=== PATIENT | female | born 1935 | race Caucasian/White ===

== ENCOUNTER 2018-12-20 08:53 | Inpatient (IN) ==
[2018-12-20 09:37] LABS: BASO# 0.06 X1000 (0.0-0.2); BASO% 0.2 % (0.0-0.8); EOS# 0.07 X1000 (0.0-0.7); EOS% 0.2 % (0.0-10.0); HEMATOCRIT 36.4 % (37.0-47.0); HEMOGLOBIN 12.1 g/dL (12.0-16.0); IMM GRAN# 0.11 X1000 (0.0-0.04); IMM GRAN% 0.3 % (0.0-0.5); LYMPH% 81.6 % (20.5-51.1); MCH 30.2 PG (27-31); MCHC 33.2 g/dL (33-37); MCV 90.8 FL (81-99); MONO# 1.47 X1000 (0.11-0.59); MONO% 3.7 % (1.7-9.3); MPV 9.6 FL (7.4-10.4); NEUT# 5.64 X1000 (1.4-6.5); PLT 146 X1000 (130-400); RBC 4.01 XMIL (4.2-5.4); RDW 14.5 % (11.5-14.5); WBC 39.95 X1000 (4.8-10.8)
[2018-12-20 09:49] LABS: CALCIUM 9.1 mg/dL (8.8-10.2); POTASSIUM 4.1 mmol/L (3.5-5.1); TOTAL BILIRUBIN 0.4 mg/dL (0.20-1.00); TOTAL PROTEIN 5.9 g/dL (6.3-8.3)
--- NOTE | 2018-12-20 10:00 | Diag Imaging Result Doc PS360 ---
EXAM : CT HEAD/C-SPINE W/O CONTRAST HISTORY: fall TECHNIQUE: 1. CT head without contrast 2. CT cervical spine without contrast COMPARISON: None. FINDINGS: Head: No parenchymal hemorrhage. No epidural or subdural hematoma. No subarachnoid hemorrhage. There are chronic microvascular ischemic changes. No mass identified on this noncontrasted exam. No hydrocephalus. No skull fracture. Prominent mucus in the sphenoid sinuses. Cervical spine: Mild scoliosis. No precervical soft tissue swelling. No subluxation. No fracture. Moderate atherosclerosis. IMPRESSION: Head: No hemorrhage. No injury. Cervical spine: No acute fracture. This exam was performed using automated exposure control, adjustment of mA or kV according to patient size, and/or use of iterative reconstruction technique. Electronically signed by Nicholas Chen 12/20/2018 9:58 AM
--- NOTE | 2018-12-20 10:06 | Diag Imaging Result Doc PS360 ---
EXAM: LUMBAR SPINE HISTORY: fall TECHNIQUE: AP and lateral with obliques, six views COMPARISON: 05/21/2012 FINDINGS: There is good alignment to the lumbar spine. No compressed vertebra. Prominent subluxation of L5 on the sacrum similar to the prior exam. Small degenerative bone spurring. Moderate atherosclerosis. IMPRESSION: No acute fracture. Electronically signed by Nicholas Chen 12/20/2018 10:03 AM
[2018-12-20 10:07] LABS: CK-MB 8.88 ng/mL (0.0-5.0)
--- NOTE | 2018-12-20 10:07 | Diag Imaging Result Doc PS360 ---
EXAM: CHEST-PORTABLE HISTORY: fall TECHNIQUE: Chest single view COMPARISON: 03/20/2017 FINDINGS: Large area of increased density in the upper left lung on the current exam. No pneumothorax. No pleural effusions identified. The heart remains enlarged. IMPRESSION: Mass, pneumonia, or even enlarged aorta in the upper left lung. A CT with contrast is recommended. Electronically signed by Nicholas Chen 12/20/2018 10:04 AM
--- NOTE | 2018-12-20 10:07 | Diag Imaging Result Doc PS360 ---
EXAM: THORACIC SPINE HISTORY: fall TECHNIQUE: AP and lateral, three views COMPARISON: 05/21/2012 FINDINGS: Mild scoliosis. Prominent degenerative bone spurring in the mid and lower thoracic spine. No fracture. No subluxation. IMPRESSION: No acute bony injury. Electronically signed by Nicholas Chen 12/20/2018 10:05 AM
[2018-12-20 10:29] LABS: BILIRUBIN URINE NEGATIVE (NEGATIVE); BLOOD URINE 2+ (NEGATIVE); CLARITY CLEAR (CLEAR); COLOR YELLOW; GLUCOSE URINE NEGATIVE (NEGATIVE); KETONE URINE NEGATIVE (NEGATIVE); LEUKOCYTES URINE 1+ (NEGATIVE); NITRITE URINE NEGATIVE (NEGATIVE); PROTEIN URINE 2+(100 mg/dL) mg/dL (NEGATIVE); SP GRAVITY URINE 1.015; UROBILINOGEN URINE NORMAL
[2018-12-20] MEDS ORDERED: NS 500 ML IV ONE (10:29)
[2018-12-20 10:30] LABS: URINE BACTERIA NEGATIVE /HFP; URINE EPITHELIAL CELLS <10 /HPF (<10)
[2018-12-20 10:31] LABS: URINE SOURCE CLEAN CATCH
--- NOTE | 2018-12-20 10:55 | EKG Report ---
Test Performed on : 12/20/2018 09:01:33 AM Test Reason : ER Blood Pressure : / mmHG Vent. Rate : 058 BPM Atrial Rate : 058 BPM P-R Int : 388 ms QRS Dur : 136 ms QT Int : 548 ms P-R-T Axes : 084 083 250 degrees QTc Int : 537 ms Sinus bradycardia. with 1st degree AV block. Nonspecific intraventricular block T wave abnormality, consider inferior ischemia T wave abnormality, consider anterolateral ischemia Abnormal ECG No previous ECGs available Unconfirmed Result
[2018-12-20 10:57] LABS: INR 1.1; PROTIME 14.8 Seconds (11.0-16.0)
[2018-12-20 10:58] LABS: PTT 31.5 Seconds (22.3-41.8)
[2018-12-20 11:06] LABS: LYMPHS 60 % (21-51); MONO 6 % (1-9); SEGS 34 % (42-75)
--- NOTE | 2018-12-20 11:24 | Diag Imaging Result Doc PS360 ---
EXAM: CT THORAX W/CONTRAST HISTORY: mass TECHNIQUE: CT chest with intravenous contrast COMPARISON: None. FINDINGS: There is dense consolidation within the left upper lobe and left upper lobe atelectasis. There are mildly to moderately prominent mediastinal and left hilar lymph nodes. It is difficult to determine if there is an underlying lesion in the left upper lobe. There are groundglass infiltrates in the right lung. No other lung nodules or masslike areas. There are scattered granuloma. The heart is enlarged. No thoracic aortic aneurysm or dissection. No pleural effusions. IMPRESSION: Although there is mediastinal and hilar adenopathy, the appearance of the left upper lobe is more typical of pneumonia and atelectasis. Short-term follow-up recommended to ensure there is clearing and no underlying mass. This exam was performed using automated exposure control, adjustment of mA or kV according to patient size, and/or use of iterative reconstruction technique. Electronically signed by Nicholas Chen 12/20/2018 11:22 AM
[2018-12-20] MEDS ORDERED: ZITHROMAX 500 MG/NS 500 MG/250 ML IVPB IV ONE (11:27)
[2018-12-20] MEDS ORDERED: ROCEPHIN 2 GM in NS 50 ML IV ONE (11:27)
[2018-12-20] MEDS ORDERED: ZOFRAN IV PRN (13:09)
[2018-12-20] MEDS ORDERED: TYLENOL PO PRN (13:09)
[2018-12-20] MEDS ORDERED: ROCEPHIN 500 MG in NS 50 ML IV SCH (13:09)
[2018-12-20] MEDS ORDERED: XANAX PO SCH (14:15)
[2018-12-20] MEDS: NS 1,000 ML IV SCH (14:42)
[2018-12-20] MEDS: ROCEPHIN 1 GM in NS 50 ML IV SCH (14:43)
[2018-12-20 15:33] LABS: CK INDEX 1.5 (0.0-2.5); CK-MB 7.69 ng/mL (0.0-5.0)
[2018-12-20] MEDS: DUONEB (A & A) INH SCH ×2 (15:36→22:42)
--- NOTE | 2018-12-20 17:07 | PROVIDER DOCUMENTATION ---
This chart was entered by Dulce Maria Vega Scribe, acting as scribe for Bert Jacob MD. HPI-General Adult - General Chief Complaint: Fall Stated Complaint: FALL Time Seen by Provider: 12/20/18 09:07 Source: patient Allergies/Adverse Reactions: Patient Allergies Allergy/AdvReac Type Severity Reaction Status Date / Time No Known Allergies Allergy Verified 01/02/17 08:24 Home Medications: Home Medication List Medication Instructions Recorded Confirmed Last Taken Type Alprazolam [Xanax] 0.5 mg PO TID 01/02/17 01/03/17 01/02/17 18:00 History Losartan [Cozaar] 50 mg PO DAILY 01/02/17 01/03/17 01/02/17 18:00 History Omeprazole [Prilosec] 20 mg PO DAILY@0700 #30 capsule 01/03/17 Unknown Rx Polyethylene Glycol 3350 [Miralax] 17 gm PO DAILY #1 powd.pack 01/03/17 Unknown Rx Sennosides/Docusate Sodium 2 each PO QHS #100 tablet 01/03/17 Unknown Rx [Pericolace] - History of Present Illness -Gen Adult Nature of Presenting Problems: Patient is a 83 year old female who presents to the ED via EMS after having a fall last night. Patient reports falling around 2030 last night and stayed in the floor all night. States having neck, back and bilateral leg pain last night but the pain has resolved currently. Denies LOC. Patient states she falls frequently due to losing her balance. Location of Pain/Injury: reports: none Pain Radiation: reports: no radiation Quality of Pain: reports: none Severity: reports: mild Onset/Duration: reports: last night (2029) Timing: reports: gone now Context/Activities at Onset: reports: light activity Associated Symptoms: reports: denies symptoms Similar Symptoms Previously?: Yes Recently seen or treated by another doctor?: Yes Review of Systems - Adult - REVIEW OF SYSTEMS - ADULT Constitutional: reports: no symptoms reported Eyes: reports: no symptoms reported Ears, Nose, Mouth & Throat: reports: no symptoms reported Cardiovascular: reports: no symptoms reported Respiratory: reports: no symptoms reported Gastrointestinal: reports: no symptoms reported Genitourinary: reports: no symptoms reported Musculoskeletal: reports: no symptoms reported Integumentary: reports: no symptoms reported Neurological: reports: no symptoms reported Psychiatric: reports: no symptoms reported Endocrine: reports: no symptoms reported Hematologic/Lymphatic: reports: no symptoms reported Allergic/Immunologic: reports: no symptoms reported All Other Systems: Reviewed and Negative Past History - Adult - PAST MEDICAL HISTORY-ADULT Review of Records: reports: Nursing Assessment Review, Medications Reviewed, Social history reviewed & non-contributory. Major Childhood Illnesses: reports: denies history Cardiovascular: reports: HTN Respiratory: reports: denies history Gastrointestinal: reports: denies history Obstetrical/Gynecological: reports: denies history Genitourinary: reports: denies history Musculoskeletal: reports: denies history Neurological: reports: denies history Endocrine/Immune: reports: denies history Other Conditions: reports: denies history - PRIOR SURGERIES/PROCEDURES Surgical/Procedure History: reports: hysterectomy - IMMUNIZATION STATUS Childhood Immunizations: See Nurse Assessment Flu Vaccine: See Nurse Assessment - FAMILY HISTORY Family History: reviewed, not pertinent - SOCIAL HISTORY Smoking: cigarettes (former) Substance Use: denies Living Situation: alone Physical Exam-General - PHYSICAL EXAM-ADULT Initial Vital Signs Reviewed: Yes - CONSTITUTIONAL General Appearance: alert, no apparent distress. negative: lethargic, slow to r espond - HEAD, EARS, NOSE, MOUTH & THROAT HENMT: moist mucous membranes. negative: angioedema, hearing deficit - NECK Neck: other (c-collar in place.) - RESPIRATORY Respiratory: chest non-tender, lungs clear, normal breath sounds. negative: rhonchi, wheezing - CARDIOVASCULAR Cardiovascular: normal peripheral pulses, regular rate, rhythm. negative: tachycardia, systolic murmur - GASTROINTESTINAL (ABDOMEN) Abdominal Exam: normal bowel sounds, non tender, soft. negative: guarding, rebound - MUSCULOSKELETAL Extremity: normal range of motion, non-tender, normal inspection, no pedal edema , pelvis stable. negative: erythema, swelling, tenderness - SKIN Integumentary: normal color, normal turgor, warm/dry. negative: cyanosis, ecchymosis, jaundice - NEUROLOGIC Neurologic: grossly normal, no motor/sensory deficits. negative: aphasia, facial droop - PSYCHIATRIC Psych/Mental Status: normal mood/affect, oriented x 3. negative: anxious Progress - PLAN OF CARE/RESULTS Progress/Plan/Lab Results: Vital Signs - 8 hr 12/20/18 08:55 Temperature 98.3 F Pulse Rate 56 L Respiratory Rate 16 Blood Pressure 113/71 O2 Sat by Pulse Oximetry 93 L Orders Category Date Time Status Nursing- Obtain EKG once Care 12/20/18 09:12 Active CHEST-PORTABLE [RAD] Stat Exams 12/20/18 09:[address] HEAD/C-SPINE W/O CONTRAST [CT] Stat Exams 12/20/18 09:12 Ordered LUMBAR SPINE [RAD] Stat Exams 12/20/18 09:12 Ordered THORACIC SPINE [RAD] Stat Exams 12/20/18 09:12 Ordered CBC WITH ELECTRONIC DIFF [HEME] Stat Lab 12/20/18 09:11 Uncollected CK PROFILE [SP CHEM] Stat Lab 12/20/18 09:11 Uncollected COMPREHENSIVE METABOLIC PANEL [CHEM] Stat Lab 12/20/18 09:11 Uncollected PROTIME WITH INR [COAG] Stat Lab 12/20/18 09:11 Uncollected PTT [COAG] Stat Lab 12/20/18 09:11 Uncollected TROPONIN T Stat Lab 12/20/18 09:[address] W/POSS RFLX CULT [URINALYSIS] Stat Lab 12/20/18 09:11 Uncollected Result Diagrams: 12/20/18 09:21 12/20/18 09:21 - EKG 1 Time of EKG reading by physician:: 09:01 EKG Read and Signed by:: Bert Jacob EKG Interpretation (*Must complete 3 of following elements*): Abnormal (T wave abnormality, consider inferior ischemia; T wave abnormality, consider anterolateral ischemia) Rate: 58 Rhythm: sinus bradycardia with 1st degree AV block [place]: normal Comments: nonspecific intraventricular block; - XRAY 1 XRAY Study: Chest Impression: See EMR Report ( EXAM: CHEST-PORTABLE HISTORY: fall TECHNIQUE: Chest single view COMPARISON: 03/20/2017 FINDINGS: Large area of increased density in the upper left lung on the current exam. No pneumothorax. No pleural effusions identified. The heart remains enlarged. IMPRESSION: Mass, pneumonia, or even enlarged aorta in the upper left lung. A CT with contrast is recommended. Electronically signed by Nicholas Chen 12/20/2018 10:04 AM 12/20/18 1004 Interpreting Physician: Nicholas Chen MD Dictated Date/Time: 12/20/18 1003 cc: Bert Jacob MD; Timothy Woodall MD) 2 XRAY Study: Lumbar Spine Impression: See EMR Report (EXAM: LUMBAR SPINE HISTORY: fall TECHNIQUE: AP and lateral with obliques, six views COMPARISON: 05/21/2012 FINDINGS: There is good alignment to the lumbar spine. No compressed vertebra. Prominent subluxation of L5 on the sacrum similar to the prior exam. Small degenerative bone spurring. Moderate atherosclerosis. IMPRESSION: No acute fracture. Electronically signed by Nicholas Chen 12/20/2018 10:03 AM 12/20/18 1003 Interpreting Physician: Nicholas Chen MD Dictated Date/Time: 12/20/18 1002 cc: Bert Jacob MD; Timothy Woodall MD) 3 XRAY Study: Thoracic Spine Impression: See EMR Report ( EXAM: THORACIC SPINE HISTORY: fall TECHNIQUE: AP and lateral, three views COMPARISON: 05/21/2012 FINDINGS: Mild scoliosis. Prominent degenerative bone spurring in the mid and lower thoracic spine. No fracture. No subluxation. IMPRESSION: No acute bony injury. Electronically signed by Nicholas Chen 12/20/2018 10:05 AM 12/20/18 1005 Interpreting Physician: Nicholas Chen MD Dictated Date/Time: 12/20/18 1005 cc: Bert Jacob MD; Timothy Woodall MD) - CT/MRI 1 CT Study: Cervical Spine, Head Impression: See EMR Report ( EXAM : CT HEAD/C-SPINE W/O CONTRAST HISTORY: fall TECHNIQUE: 1. CT head without contrast 2. CT cervical spine without contrast COMPARISON: None. FINDINGS: Head: No parenchymal hemorrhage. No epidural or subdural hematoma. No subarachnoid hemorrhage. There are chronic microvascular ischemic changes. No mass identified on this noncontrasted exam. No hydrocephalus. No skull fracture. Prominent mucus in the sphenoid sinuses. Cervical spine: Mild scoliosis. No precervical soft tissue swelling. No subluxation. No fracture. Moderate atherosclerosis. IMPRESSION: Head: No hemorrhage. No injury. Cervical spine: No acute fracture. This exam was performed using automated exposure control, adjustment of mA or kV according to patient size, and/or use of iterative reconstruction technique. Electronically signed by Nicholas Chen 12/20/2018 9:58 AM 12/20/18 0958 Interpreting Physician: Nicholas Chen MD Dictated Date/Time: 12/20/18 0952 cc: Bert Jacob MD; Timothy Woodall MD) 2 CT Study: Thorax Impression: See EMR Report ( EXAM: CT THORAX W/CONTRAST HISTORY: mass TECHNIQUE: CT chest with intravenous contrast COMPARISON: None. FINDINGS: There is dense consolidation within the left upper lobe and left upper lobe atelectasis. There are mildly to moderately prominent mediastinal and left hilar lymph nodes. It is difficult to determine if there is an underlying lesion in the left upper lobe. There are groundglass infiltrates in the right lung. No other lung nodules or masslike areas. There are scattered granuloma. The heart is enlarged. No thoracic aortic aneurysm or dissection. No pleural effusions. IMPRESSION: Although there is mediastinal and hilar adenopathy, the appearance of the left upper lobe is more typical of pneumonia and atelectasis. Short-term follow-up recommended to ensure there is clearing and no underlying mass. This exam was performed using automated exposure control, adjustment of mA or kV according to patient size, and/or use of iterative reconstruction technique. Electronically signed by Nicholas Chen 12/20/2018 11:22 AM 12/20/18 1122 Interpreting Physician: Nicholas Chen MD Dictated Date/Time: 12/20/18 1115 cc: Bert Jacob MD; Timothy Woodall MD) - CONSULTS/PCP/HOSPITALIST Notification #1 *Consult/PCP/Hospitalist*: Dr. Stokes Time Discussed: 11:45 Reason/Comments: Dr. Jacob consulted with Dr. Stokes about patient. Consult Disposition: Admit Departure - Departure Date of Disposition Decision: 12/20/18 Time of Disposition Decision: 11:45 DIAGNOSIS: Pneumonia, Fall Disposition: ADMITTED INPATIENT 09 Certified Medical Emergency: Emergent Condition: Serious Referrals and Follow-Ups: Timothy Woodall MD [Primary Care Provider] - - Critical Care Note This patient required my direct & personal management of CC.: No Attestation - Physician/ SOCO Attestation The physician spent face to face time with patient:: Yes Advanced Practice Provider documentation review:: Supervising physician onsite and consulted in the evaluation and care of this patient. The physician did have a face to face encounter with the patient. This chart was documented by the indicated scribe, (Dulce Maria Vega, Yen) and accurately reflects the services I performed and decisions made by me, Bert Jacob MD, as attested by the provider's signature.
--- NOTE | 2018-12-20 18:11 | Diag Imaging Result Doc PS360 ---
EXAM: XRAY HIP UNILATERAL RT HISTORY: fall, hip pain TECHNIQUE: Right hip, two views COMPARISON: None. FINDINGS: No fracture. No dislocation. IMPRESSION: No acute bony injury. Electronically signed by Nicholas Chen 12/20/2018 6:08 PM
--- NOTE | 2018-12-20 18:14 | Diag Imaging Result Doc PS360 ---
EXAM: KNEE 3 VIEWS RIGHT HISTORY: fall, knee pain TECHNIQUE: Right knee, three views COMPARISON: None. FINDINGS: No fracture. No dislocation. Prominent atherosclerosis. IMPRESSION: No acute bony injury. Electronically signed by Nicholas Chen 12/20/2018 6:12 PM
--- NOTE | 2018-12-20 19:13 | HISTORY AND PHYSICAL ---
PRIMARY CARE PHYSICIAN: Dr. Timothy Woodall. CHIEF COMPLAINT: Fall last night, and stayed on the floor all night until she was found by family this morning, having neck, back and bilateral leg pain that resolved after she arrived. Also noted to have a cough, shortness of breath, body aches and chills over the last couple of days that has progressively worsened. HISTORY OF PRESENTING ILLNESS: This is an 83-year-old female who presents to [facility] ER via EMS, after she sustained a fall last night in her home and stayed on the floor all night long until a neighbor went to check on her and could not get her to the door. Attempted to call her on the phone and was unable to get her, so they called family members and dispatched police and EMS, who found her lying on the floor and brought her to the emergency room. She was initially complaining of some neck, back and bilateral leg pain, but that had resolved upon arrival to the emergency room. Workup in the ER showed an O2 saturation of 93% on room air on arrival. Her white blood cell count was 39.95. Her creatine kinase was 445 with a CK-MB of 8.88 and a negative troponin. A chest x-ray showed a mass, pneumonia or even enlarged aorta in the left upper lung. CT with contrast was recommended. A CT with IV contrast of the chest was obtained that showed the appearance of the left upper lobe more typical of pneumonia and atelectasis, but no underlying mass is noted at this time. A followup is recommended once her treatment is completed for her pneumonia, so she will be admitted to the medical unit for further evaluation and treatment. PAST MEDICAL HISTORY: Hypertension. PAST SURGICAL HISTORY: Hysterectomy. FAMILY HISTORY: Reviewed and noncontributory. SOCIAL HISTORY: She is currently living alone and denies any tobacco, alcohol or illicit drug use. ALLERGIES: She has no known drug allergies. HOME MEDICATIONS: We will hold her cyanocobalamin injections every month. We will continue her Xanax 0.5 mg 1 p.o. q.a.m. and 2 p.o. at bedtime, Lasix 40 mg p.o. daily, Cozaar 50 mg p.o. daily, Prilosec 40 mg p.o. daily, potassium 10 mEq p.o. daily, Maria M-Colace 2 p.o. at bedtime. LABORATORY DATA: White blood cell count 39.95, hemoglobin 12.1, hematocrit 36.4, platelets 146,000. PT and INR of 14.8 and 1.10. Sodium 142, potassium 4.1, chloride 112, CO2 is 17, BUN of 25, creatinine 1, glucose 93. Creatine kinase of 445, CK-MB of 8.88. Troponin negative at less than 0.010. Urinalysis was negative. DIAGNOSTIC DATA: Chest x-ray showed a mass, pneumonia or even enlarged aorta in the upper left lung. CT with contrast is recommended. We did the chest CT with IV contrast that showed although there is mediastinal and hilar adenopathy, the appearance of the left upper lobe is more typical of pneumonia and atelectasis. Short-term followup recommended to ensure there is clearing and no underlying mass. Head and cervical spine CT were normal, with no acute fracture. Lumbar spine x-ray showed no acute fracture. Thoracic spine x-ray showed no acute bony injury. EKG showed sinus bradycardia with first-degree AV block at 58. REVIEW OF SYSTEMS: She denied any fever, chills or blurred vision. She has had some shortness of breath, cough, some body aches. She denied any abdominal pain, constipation, diarrhea, or burning or hurting with urination. She states that she has had multiple falls at home recently, with her last one being last night. PHYSICAL EXAMINATION: VITAL SIGNS: On arrival she had a temperature of 98.3 degrees, pulse 56, respirations 16, blood pressure 113/71, saturating 93% on room air. GENERAL: This is a an 83-year-old female sitting up in the bed. Answers questions appropriately. HEENT: Normocephalic, atraumatic. Normal ENT inspection. Oropharynx and nares are clear. Eyes: Pupils are equal, round and reactive to light and accommodation. Extraocular movements are intact. NECK: Normal inspection. Normal range of motion. LUNGS: Normal breath sounds bilaterally. Equal lung expansion. Chest wall movement. HEART: Regular rate and rhythm. No murmurs, rubs or gallops. ABDOMEN: Soft, nontender, nondistended. Bowel sounds are present x4 quadrants. MUSCULOSKELETAL: She has 5/5 strength x4 extremities. NEUROLOGICAL: The cranial nerves 2-12 appear grossly intact. ASSESSMENT: 1. Fall. 2. Left upper lobe pneumonia. 3. Leukocytosis. 4. Generalized weakness. 5. Hypertension. PLAN: She was admitted to the medical unit, placed on telemetry, healthy-heart diet, placed on DuoNeb q.6 hours, Rocephin 1 g IV q.24, azithromycin 500 IV q.24, normal saline at 75 mL/h. We will recheck a CPK and troponin in the a.m. Blood cultures x2 and a urine culture are pending. O2 per protocol. Continue home medications as previously identified. Physical Therapy consult in the a.m. and further orders after seen by attending. Dictated by RICK Sanchez for Reynold Stokes MD cc: RICK Sanchez MD Rodney W. Harney, MD
--- NOTE | 2018-12-20 21:07 | HISTORY AND PHYSICAL ---
HISTORY AND PHYSICAL ADDENDUM: To RICK Sanchez history and physical. HISTORY OF PRESENT ILLNESS: This is a very pleasant little lady. Her name is Xochitl Bennett. She is 83 years old. She came in with fall and weakness. Her workup in the ER was pretty much normal except she had pneumonia. She had pain associated with that and she is still complaining of pain in her hip and mostly in her right knee. She came in for evaluation for that. Her exam reveals no crepitus in knee or hip. She does have some rales intermittently on pulmonary exam and she was felt to have a pneumonia. PROBLEM LIST: 1. Pneumonia, likely related to a pulmonary bronchopneumonia. We will get Rocephin, azithromycin. Pulmonary toilet and follow. 2. Fall. We will work on strength, conditioning, get a physical therapy evaluation. She may require further treatments based on her functioning. Will continue to follow closely. 3. Deep vein thrombosis prophylaxis and follow closely. 4. Discussed her Living Will. She really was very hesitant to answer any questions, so she will be a Full Code and we will continue to follow. cc: Reynold Stokes MD
[2018-12-20] MEDS: PERICOLACE PO SCH (23:44)
[2018-12-20] MEDS: XANAX PO SCH (23:46)
[2018-12-21] MEDS: PRILOSEC PO SCH (06:12)
[2018-12-21] MEDS: NS 1,000 ML IV SCH (06:14)
[2018-12-21] MEDS: DUONEB (A & A) INH SCH ×3 (07:58→23:00)
[2018-12-21 08:21] LABS: CALCIUM 8.2 mg/dL (8.8-10.2); CREATININE 1.1 mg/dL (0.5-0.9); POTASSIUM 3.7 mmol/L (3.5-5.1)
[2018-12-21 08:23] LABS: BASO# 0.04 X1000 (0.0-0.2); BASO% 0.1 % (0.0-0.8); EOS# 0.12 X1000 (0.0-0.7); EOS% 0.4 % (0.0-10.0); HEMOGLOBIN 10.7 g/dL (12.0-16.0); IMM GRAN# 0.06 X1000 (0.0-0.04); IMM GRAN% 0.2 % (0.0-0.5); LYMPH# 27.82 X1000 (1.2-3.4); LYMPH% 84.9 % (20.5-51.1); MCH 29.2 PG (27-31); MCHC 31.5 g/dL (33-37); MCV 92.9 FL (81-99); MONO# 0.99 X1000 (0.11-0.59); MPV 9.7 FL (7.4-10.4); NEUT# 3.72 X1000 (1.4-6.5); NEUT% 11.4 % (42.2-75.2); PLT 136 X1000 (130-400); RBC 3.66 XMIL (4.2-5.4); RDW 14.9 % (11.5-14.5); WBC 32.75 X1000 (4.8-10.8)
[2018-12-21] MEDS: XANAX PO SCH ×2 (08:24→20:29)
[2018-12-21] MEDS: KLOR-CON PO SCH (08:24)
[2018-12-21 08:52] LABS: EOS 1 % (1-10); LYMPHS 84 % (21-51); MONO 3 % (1-9); SEGS 12 % (42-75)
[2018-12-21 08:54] LABS: OVALOCYTES OCCASIONAL; POIKILOCYTOSIS OCCASIONAL
[2018-12-21] MEDS ORDERED: LASIX PO SCH (09:00)
[2018-12-21] MEDS ORDERED: COZAAR PO SCH (09:00)
[2018-12-21] MEDS ORDERED: ZITHROMAX 500 MG/NS 500 MG/250 ML IVPB IV SCH (12:00)
[2018-12-21] MEDS: ROCEPHIN 1 GM in NS 50 ML IV SCH (12:57)
[2018-12-21] MEDS ORDERED: ROBITUSSIN-DM PO PRN (19:35)
[2018-12-21] MEDS: PERICOLACE PO SCH (20:29)
[2018-12-21] MEDS: MAXIPIME 0.5 GM in NS 50 ML IV SCH (20:29)
--- NOTE | 2018-12-22 03:58 | PROGRESS NOTE ---
DATE: 12/21/2018 SUBJECTIVE: Patient has no major complaints. OBJECTIVE: Vital signs: Blood pressure is 122/53, heart rate 62, respiratory 16, temperature 98 degrees, 94% on 2 L. Cardiovascular: Regular rate and rhythm. Pulmonary: Bilateral breath sounds. Clear to auscultation. Occasional wheeze. Gastrointestinal: Soft, nontender, nondistended. Bowel sounds are positive. LABORATORY: White count 32, hemoglobin and hematocrit 10 and 34, platelet 136,000. PROBLEM LIST: 1. Pneumonia. We will continue antibiotics. I am going to put her on azithromycin. We will continue to follow closely. Disposition pending her clinical status. 2. Status post fall. We will continue to follow closely. 3. Early rhabdomyolysis. That seems to be better. We will continue with gentle hydration and follow. I am going to repeat her x-ray tomorrow. We will continue to monitor closely. cc: Reynold Stokes MD
[2018-12-22] MEDS: PRILOSEC PO SCH (06:07)
[2018-12-22 07:45] LABS: BASO# 0.04 X1000 (0.0-0.2); BASO% 0.1 % (0.0-0.8); EOS# 0.21 X1000 (0.0-0.7); EOS% 0.7 % (0.0-10.0); HEMATOCRIT 34.4 % (37.0-47.0); HEMOGLOBIN 10.8 g/dL (12.0-16.0); IMM GRAN# 0.06 X1000 (0.0-0.04); IMM GRAN% 0.2 % (0.0-0.5); LYMPH# 25.77 X1000 (1.2-3.4); LYMPH% 85.8 % (20.5-51.1); MCH 29.2 PG (27-31); MCHC 31.4 g/dL (33-37); MONO# 0.95 X1000 (0.11-0.59); MONO% 3.2 % (1.7-9.3); MPV 9.5 FL (7.4-10.4); NEUT# 3.01 X1000 (1.4-6.5); PLT 127 X1000 (130-400); WBC 30.04 X1000 (4.8-10.8)
[2018-12-22 07:56] LABS: CALCIUM 8.6 mg/dL (8.8-10.2); CREATININE 0.9 mg/dL (0.5-0.9); POTASSIUM 4.1 mmol/L (3.5-5.1)
[2018-12-22] MEDS: DUONEB (A & A) INH SCH ×3 (08:00→22:00)
[2018-12-22 08:49] LABS: EOS 1 % (1-10); LYMPHS 84 % (21-51); MONO 2 % (1-9); SEGS 12 % (42-75)
[2018-12-22 08:50] LABS: OVALOCYTES OCCASIONAL; POIKILOCYTOSIS OCCASIONAL
[2018-12-22] MEDS ORDERED: MIRALAX PO SCH (09:00)
[2018-12-22] MEDS: KLOR-CON PO SCH (09:27)
[2018-12-22] MEDS: XANAX PO SCH ×2 (09:27→22:33)
[2018-12-22] MEDS: MAXIPIME 0.5 GM in NS 50 ML IV SCH (09:28)
--- NOTE | 2018-12-22 10:44 | EKG Report ---
Test Performed on : 12/22/2018 07:56:11 AM Test Reason : Irregular RR, Bradycardia with pauses Blood Pressure : / mmHG Vent. Rate : 061 BPM Atrial Rate : 208 BPM P-R Int : 000 ms QRS Dur : 152 ms QT Int : 448 ms P-R-T Axes : 000 063 -66 degrees QTc Int : 450 ms Atrial fibrillation. Left bundle branch block Abnormal ECG When compared with ECG of 20-DEC-2018 09:01, (Unconfirmed) Atrial fibrillation. has replaced Sinus rhythm. T wave inversion less evident in Inferior leads T wave inversion no longer evident in Anterior leads QT has shortened Confirmed by Luis Asencio MD ([id number]) on 01/03/2019 7:44:20 AM
[2018-12-22] MEDS ORDERED: ZYVOX 600 MG/D5W 600 MG/300 ML IVPB IV SCH (10:45)
--- NOTE | 2018-12-22 12:43 | PROGRESS NOTE ---
DATE: 12/22/2018 SUBJECTIVE: The patient looks like she is breathing better. She is not struggling to breathe as much as she was previously. OBJECTIVE: Blood pressure is 106/74, heart rate 56, respiratory rate of 22. Cardiovascular: Regular rate and rhythm. Pulmonary: Bilateral breath sounds clear to auscultation. GI: Soft, nontender, nondistended. Bowel sounds were positive. She had some rales at the bases. White count is down to 30,000, hemoglobin and hematocrit 10 and 34, platelets 127,000. Rest of the data is stable. PROBLEM LIST: 1. Pneumonia. Now family today reports she has pulmonary fibrosis but she has left upper lobe airspace disease, more consistent with pneumonia, but it does not look like pulmonary fibrosis. She is on azithromycin. She is on cefepime. The only thing we have not added is Zyvox which we will have to be careful with because she has leukemia, but I have added that. Dr. Zeng, it has been reported to me, feels she needs an infectious disease consult so we are in the process of transferring, her possibly pulmonary consult as well. 2. New onset atrial fibrillation with slow rate, slow response. Not really on any medications that would slow her rate. Apparently, this is a new diagnosis, although the family makes it seem like she has had this issue before now. Dr. Woodall did an echocardiogram in August which showed a very limited study. There is no ejection fraction documented. I am not sure if they were specifically looking for something. The echocardiogram, I do not have much information there, but we will continue to follow. 3. Status post fall and early rhabdomyolysis. She seems to be doing better from that standpoint. Her CK is coming down. It is only very mildly elevated. 4. Disposition. I guess we are transferring her to the [facility] hospital for multiple consultations unavailable at [facility] and we are in the process of doing that. 5. Chronic lymphocytic leukemia. Now, I have discussed with Dr. Smiley. Her baseline white count apparently [place] 20,000 to [address]. She came in around 40,000, with antibiotics. She has come down to around 30,000. Looking at her most recent labs, she was 15,000 to 18,000. Dr. Woodall and Dr. Smiley are discussing that as an outpatient. She is going over there and he will comment on that when he gets there. I mean I do think she truly has pneumonia. I do not see that we have ordered a procalcitonin level so we will do that as well, but we will continue to follow closely. cc: Reynold Stokes MD
[2018-12-22] MEDS ORDERED: ZITHROMAX 500 MG/NS 500 MG/250 ML IVPB IV SCH (16:00)
--- NOTE | 2018-12-22 16:47 | CARDIOLOGY CONSULTATION ---
DATE: 12/22/2018 CONSULTATION REQUESTED BY: Dr. Stokes, hospitalist service. REASON FOR CONSULTATION: Abnormal EKG, atrial fibrillation. HISTORY: Mrs. Bennett is an 83-year-old female who was brought to the hospital by family members who found her lying on the floor of her house. She was trying to make it to the bathroom. The patient lives by herself and apparently she also has dementia and is very unsteady on her feet. She refuses to use a walker even though she has one at home. Bottom line is that they found her lying down and they brought her to the emergency room about 9 o'clock in the morning of December 20. At that time, they did an EKG that shows sinus bradycardia, first-degree AV block, left bundle branch block. The heart rate was 58 beats per minute. They did not consult the Cardiology team for evaluation at that time. There was an abnormal chest x- ray suspicious for pneumonia. The Chest X Ray report dictated by Dr. Chen stated that there was either mass, pneumonia or even enlarged aorta in the upper left lung. CT of the chest was requested and it was done on that day and he said, although there is mediastinal hilar adenopathy the appearance of the left upper lobe is more typical of pneumonia and atelectasis. Short term follow up recommended. At any rate, the patient has been treated with antibiotics cefepime and azithromycin. She also received linezolid. This morning, she developed atrial fibrillation on top of the abnormal EKG. The rate was 61 beats per minute and continues to show the pattern of the left bundle branch block. They consulted us because of that. The initial white count was 39,950. Subsequent white count is 30,000. She has 60% lymphocytes on the 1st blood count on the 2nd one is 84%. The patient has been having cough. No chest pain. No previous syncope. However, she has had prior episodes of falls at home. No dizziness. No prior cardiac history. PAST MEDICAL HISTORY: Positive for hypertension and a diagnosis of chronic lymphocytic leukemia, which is being monitored by Dr. Smiley. The patient has been diagnosed with dementia about 2 years ago. She is manifesting impaired short term memory. She also carries a diagnosis of pulmonary fibrosis. 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 SURGICAL HISTORY: She had partial hysterectomy. She has had back surgery in the past. She has had also I believe a hernia repair. HOME MEDICATIONS: Include Xanax 0.5 mg as directed, vitamin B12, furosemide 40 every 3 days. Losartan 50 mg daily, Prilosec 40 mg daily, potassium chloride 10 mEq every 3 days. ALLERGIES: To codeine, sulfa medication. REVIEW OF SYSTEMS: According to the daughter and the son, she has become gradually more feeble lately, especially over the past 3 months. They have noted a deterioration in her capacity to perform physical activity. SOCIAL HISTORY: She is a for 25 years. She had 2 grown-up children. Both were present in the room. She has never been a smoker. She used to do a lot of ironing in the past. FAMILY HISTORY: Really noncontributory. PHYSICAL EXAM: Today blood pressure is 114/43, temperature 98.2 degrees, pulse 62, respirations 20. She is elderly, frail, in no distress.HEENT: Unremarkable. Chest: Diminished breath sounds in both lungs. Heart: Heart sounds are slightly irregular, distant. Abdomen: Nontender, soft. No masses. No hepatomegaly. Extremities: Showed trace edema. Neurological: Nonfocal. Moves 4 extremities. IMPRESSION/PLAN: 1. Patient who presents with episode of a fall, unable to get up by herself with abnormal chest x- ray and CT of the chest suggesting pneumonia versus mass. 2. Chronic lymphocytic leukemia. The mass or pneumonia may relate to lymphoma actually. 3. Abnormal EKG with first-degree AV block, left bundle branch block and bradycardia. The patient having seemingly an episode of syncope. She may well have sick sinus syndrome or symptomatic bradycardia. 4. History of hypertension. 5.Additional diagnosis :dementia, Alzheimer's. RECOMMENDATION: At this time, the patient is going to be transferred to [facility] for further evaluation. We need to have plant changer on the case. We need to have Hematology-Oncology in the case and this patient more likely is going to end up needing a pacemaker. I discussed that with the patient's son and daughter. They understood and agree. cc: Juarez Zeng MD [facility]ITAL[facility]
[2018-12-22 16:55] LABS: ALB/GLOB RATIO 1.8; ALBUMIN 3.5 g/dL (3.5-5.0); CALCIUM 8.4 mg/dL (8.8-10.2); POTASSIUM 4.3 mmol/L (3.5-5.1); TOTAL BILIRUBIN 0.37 mg/dL (0.20-1.00); TOTAL PROTEIN 5.4 g/dL (6.3-8.3)
[2018-12-22] MEDS ORDERED: MAXIPIME 1 GM in NS 50 ML IV SCH ×4 (18:00)
--- NOTE | 2018-12-22 19:33 | INFECTIOUS DISEASE CONSULT REP ---
DATE: 12/22/2018 CONCLUSION: The patient has pulmonary infiltrates. I think that they could be due to pneumonia and possibly it may be an aspiration pneumonia in view of the fact that the patient has recently been coughing and she also had shortness of breath, body aches and chills and. Also she fell on the floor last night and stayed there all night long until she was found by her family in the morning. 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 Family says that the patient has a history of pulmonary fibrosis also. I noticed on exam the patient's right leg is swollen and I am concerned that she maybe has a deep venous thrombosis in the leg. I am concerned that the patient could have a right leg deep venous thrombosis. RECOMMENDATIONS: I agree with starting the patient on cefepime and Zyvox. I have discontinued aztreonam. I ordered immunoglobulin levels also. I certainly agree with Dr. Stokes ordering procalcitonin which could should help us decide whether the patient has a bacterial pneumonia or not. I have ordered an ultrasound test of the patient's right leg to see if there is a clot in it. DISCUSSION: The patient is very hard of hearing according the family and has dementia. As mentioned above, she fell last night and was on the floor all night and the patient was found to have low blood pressure and very low heart rate. She had been in the past few days complaining of body aches and chills and cough and shortness of breath. Laboratory studies thus far show a CBC with a white count of 30,400 and an absolute neutrophil count of 3000, hemoglobin is 10.8, platelet count is 127,000. Creatinine is 0.9. GFR is 60. Liver function studies are normal. CK yesterday was 514. It was 246 today. Urinalysis showed white cells but no bacteria. Blood cultures thus far are negative. Urine culture is mixed. CT scan of the chest shows left upper lobe consolidation most consistent with pneumonia and also she has atelectasis. The patient also had mediastinal and hilar adenopathy. The right lung has a ground-glass infiltrate. PAST MEDICAL HISTORY: Positive for hypertension, chronic lymphocytic leukemia, and dementia. PAST SURGICAL HISTORY: Is positive for hysterectomy. FAMILY HISTORY: Said to be noncontributory. SOCIAL HISTORY: The patient lives alone and denies smoking cigarettes, drinking alcoholic beverages or using illicit drugs. HOME MEDICATIONS: Include B12 injections, Xanax, Lasix, Cozaar, Prilosec, potassium, and Maria M- Colace. PHYSICAL EXAMINATION: Vital Signs: Temperature is 98.2 degrees, pulse 52, respirations 20, blood pressure 114/43. The patient weighs 148 pounds. General: This is an ill-appearing elderly female. She is in no acute distress currently. Head, eyes, ears, nose and throat: She has decreased hearing. She can see near objects. She is wearing dentures. She does not have any white patches on her tongue. Neck: No meningismus. Lungs: Clear to auscultation. Cardiovascular: Heart rate is regular. Abdomen: Is soft and nontender. Neurologic: The patient is very hard of hearing. She can see near objects. She can move extremities. There is no tremor. Thank you for the consult. cc: Casey Mathur MD
[2018-12-22] MEDS: MAXIPIME 2 GM in NS 50 ML IV SCH (22:34)
[2018-12-22] MEDS: PERICOLACE PO SCH (22:34)
[2018-12-22] MEDS: ZYVOX 600 MG/D5W 600 MG/300 ML IVPB IV SCH (22:34)
[2018-12-22] MEDS: ROBITUSSIN-DM PO PRN (23:50)
[2018-12-23] MEDS: ROBITUSSIN-DM PO PRN (04:26)
[2018-12-23] MEDS: DUONEB (A & A) INH SCH ×4 (04:59→22:10)
[2018-12-23] MEDS: PRILOSEC PO SCH (06:26)
[2018-12-23 06:52] LABS: BASO# 0.04 X1000 (0.0-0.2); BASO% 0.1 % (0.0-0.8); EOS# 0.19 X1000 (0.0-0.7); EOS% 0.6 % (0.0-10.0); HEMATOCRIT 35.1 % (37.0-47.0); HEMOGLOBIN 10.9 g/dL (12.0-16.0); IMM GRAN# 0.08 X1000 (0.0-0.04); IMM GRAN% 0.3 % (0.0-0.5); LYMPH# 26.39 X1000 (1.2-3.4); LYMPH% 83.8 % (20.5-51.1); MCH 29.2 PG (27-31); MCHC 31.1 g/dL (33-37); MCV 94.1 FL (81-99); MONO# 0.94 X1000 (0.11-0.59); MPV 9.9 FL (7.4-10.4); NEUT# 3.84 X1000 (1.4-6.5); NEUT% 12.2 % (42.2-75.2); PLT 124 X1000 (130-400); RBC 3.73 XMIL (4.2-5.4); WBC 31.48 X1000 (4.8-10.8)
[2018-12-23 07:18] LABS: ANISOCYTOSIS 1+; LYMPHS 84 % (21-51); MONO 2 % (1-9); SEGS 14 % (42-75)
[2018-12-23] MEDS: XANAX PO SCH ×2 (09:13→22:14)
[2018-12-23] MEDS: MAXIPIME 2 GM in NS 50 ML IV SCH ×2 (09:13→22:14)
[2018-12-23] MEDS: KLOR-CON PO SCH (09:13)
[2018-12-23] MEDS: MIRALAX PO SCH (09:13)
[2018-12-23] MEDS: ZYVOX 600 MG/D5W 600 MG/300 ML IVPB IV SCH ×2 (11:37→22:50)
--- NOTE | 2018-12-23 12:20 | PROVIDER PROGRESS NOTE ---
Progress Note Pulmonary additional note CT seen. Findings are likely due to pneumonia. Recommend antibiotics and repeat imaging in a few weeks (2-4)
--- NOTE | 2018-12-23 12:50 | CARDIOLOGY PROGRESS NOTE ---
DATE: 12/23/2018 CHIEF COMPLAINT: Weakness, cough. SUBJECTIVE: Ms. Bennett continues to cough. She still feels weak. They did an echocardiogram this morning. I have to review the results. She has had no major change in temperature. Telemetry shows no arrhythmias. We still have an EKG pending for this morning. OBJECTIVE: Her blood pressure is 128/49, temperature 98.1, pulse 71, respirations 15. The patient is awake, alert, oriented, no distress. HEENT is unremarkable. Chest is abnormal with some rhonchi and wheezing, especially in the left lung. Heart sounds are regular and rhythmic. I do not hear gallop or murmur. Her abdomen is nontender. Extremities showed no edema. Neurologic: Follows commands, moves all 4 extremities. DIAGNOSTIC DATA: Blood work from yesterday showed sodium 142, potassium 4.3, carbon dioxide 17, BUN of 20, creatinine 1.0. IMPRESSION: 1. The patient has a case of abnormal EKG with left bundle branch block, first degree AV block, possible sick sinus syndrome. Paroxysmal atrial fibrillation was noted yesterday. 2. Abnormal chest x-ray with possible mass versus pneumonia in the left lung. 3. Chronic lymphocytic leukemia. 4. History of hypertension. 5. Alzheimer's disease. RECOMMENDATIONS: At this time, we will await for opinion coming from Pulmonary and Oncology. The team of doctor Dr. Smiley and Dr. Costa has been consulted. Dr. Mathur from Infectious Disease already saw the patient. We will stand by and intervene if a serious or malignant arrhythmia is identified. Otherwise, we are not going to perform pacemaker implantation yet. cc: Juarez Zeng MD [facility]
[2018-12-23] MEDS ORDERED: DESYREL PO PRN (12:58)
--- NOTE | 2018-12-23 13:37 | PROGRESS NOTE ---
DATE: 12/23/2018 SUBJECTIVE: The patient has no major complaints except cough and she did not get much sleep because of cough. OBJECTIVE: Blood pressure is 128/61, heart rate 67, respiratory rate 20, temperature 97.6 degrees, 98, 97% on 3 L but it is also recorded at 4 L, somewhere in betwixt there. Per pulmonary, per RT, her oxygen is at 3 L. PROBLEM LIST: 1. Pneumonia. She seems to be doing okay. She still has an oxygen requirement. We are going to continue to follow. Pulmonary has been consulted. CT is felt to be more consistent with pneumonia. Procalcitonin level is pending. Dr. Mathur also ordered immunoglobulin level, so we are pending. She is currently on cefepime and Zyvox. 2. Atrial fibrillation, which is low. Her heart rate has been stable now. She was in the 50s yesterday but she is in the 60s and 70s now. Cardiology recommending consideration for pacemaker, I guess when she stabilizes. She will probably have to clear her infection before that can be pursued. 3. Rhabdomyolysis and fall. She seems to be doing okay. She is still very weak. Physical therapy is following with her. 4. Chronic lymphocytic leukemia. I have consulted Dr. Smiley. I do not see a note from him yet and we will continue to monitor. 5. Disposition. I anticipate that she will need inpatient rehab which were looking at processing. Appreciate consultants and we will follow closely. Now, based on her age and risk factors, I do think anticoagulation, she meets criteria for that. I will defer to cardiology about anticoagulating her and we will see how she does. She is a fall risk but we will go ahead and initiate deep venous thrombosis prophylaxis, but I think she will need anticoagulation usp. She definitely meets criteria for chronic anticoagulation. cc: Reynold Stokes MD
--- NOTE | 2018-12-23 15:03 | INFECTIOUS DISEASE PROGRESS NO ---
DATE: 12/23/2018 PRESENT ILLNESS: The patient has pulmonary infiltrates which I think are due to possible aspiration pneumonia. The aspiration pneumonia may be superimposed over pulmonary fibrosis, which the patient is said to have. I am concerned that the patient may have a clot in her right leg because the leg is more swollen than the left leg. MEDICATIONS: The patient is on day 1 of cefepime and Zyvox. PHYSICAL EXAMINATION: Vital Signs: Temperature is 97.6 degrees, pulse 67, respirations 20, blood pressure 128/61. General: This is a somewhat ill-appearing, elderly female. She is in no acute distress. Head, Eyes, Ears, Nose, and Throat: She has decreased hearing. She can see near objects. She does not have any white patches in her mouth. Neck: She does not have any pain when she turns her head. Lungs: Clear to auscultation. Cardiovascular: Heart rate is regular. Abdomen: Soft and nontender. Neurologic: The patient has decreased hearing. She can see near objects. She can move her extremities but she is weak. Extremities: The patient's right leg is swollen. ASSESSMENT AND PLAN: I think the patient could have an aspiration pneumonia superimposed on pulmonary fibrosis. I plan to continue cefepime and Zyvox. As regarding the patient's possible blood clot in her leg, she is going to have a Doppler venous study of her leg done this afternoon. Still pending are the patient's procalcitonin level and the patient's immunoglobulin levels. COMORBIDITIES: The patient is elderly. She is said to have pulmonary fibrosis. She does have chronic lymphocytic leukemia. ADDENDUM: The doppler venous study just completed shows no blood clot. cc: Casey Mathur MD [facility]
[2018-12-23] MEDS: TYLENOL PO PRN (16:23)
[2018-12-23] MEDS: SOLU-MEDROL IV SCH ×2 (17:28→23:22)
--- NOTE | 2018-12-23 17:56 | CONSULTATION ---
DATE OF CONSULTATION: 12/23/2018 REQUESTING PROVIDER: RICK Sanchez REASON FOR CONSULTATION: Pneumonia, history of chronic lymphocytic leukemia. HISTORY OF PRESENT ILLNESS: This is an 83-year-old female with a medical history of pulmonary fibrosis, chronic lymphocytic leukemia, bladder cancer, dementia, and hypertension. She presented to the [facility] on 12/20/2018 after a fall. Initial workup in the ER revealed left upper lobe pneumonia. She has been admitted for further evaluation and management. During this hospital stay, she also developed a new onset atrial fibrillation with slow rate and slow response. She was transferred to our facility yesterday for Infectious Disease consultation and pulmonary consultation. At the time of my examination, patient is resting in bed comfortably. The patient's daughter, son-in-law, son and granddaughter are at the bedside. Most of the information is obtained from patient's daughter. The patient declined quickly in the last 3 months, especially for her respiratory status. She saw Dr. Le before and was diagnosed with pulmonary fibrosis, which has been treated with Symbicort, but patient apparently refused to take home medicine due to her dementia. She has recent pedal edema and abdominal wall edema. Her PCP had been treating her with Lasix from 12/11/2018 to 12/16/2018. It apparently helped a lot. She has chronic dry cough and shortness of breath. She fell in the evening of last and stayed on the floor over 12 hours until the next morning. She was found by her family. She has been complaining of leg pain since then. She has no chest pain, bowel habit change, or palpitation. PAST MEDICAL HISTORY: 1. Pulmonary fibrosis. 2. Chronic lymphocytic leukemia originally followed up by Dr. Smiley. 3. Remote history of bladder cancer. 4. Dementia. 5. Hypertension. PAST SURGICAL HISTORY: 1. Partial hysterectomy. 2. Back surgery. 3. Hernia repair. SOCIAL HISTORY: The patient lives alone at home. Her daughter lives about 2 miles away, and her son lives close too. They both check on the patient routinely. 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 She has no history of alcohol, tobacco, or illicit drug use. FAMILY HISTORY: Mother had congestive heart failure. Father had liver cancer. Only 2 siblings are free of cancer. Others have either breast cancer or lung cancer. ALLERGIES: Codeine, sulfa. REVIEW OF SYSTEMS: Difficult to be obtained. PHYSICAL EXAMINATION: Vital signs: Temperature 98.1 degrees, blood pressure 128/49, pulse 71, respiratory rate 16, oxygen saturation 97% on nasal cannula at 3 L. General: Chronically ill- appearing, resting in bed with no acute distress. Four family members at the bedside. The patient is very hard of hearing. HEENT: Atraumatic. Trachea midline. Mucosa pink and moist. Respiratory: Even and unlabored, symmetrical excursion. Auscultation revealed diminished breathing sounds, only inspiratory crackles and delayed expiratory wheezing bilaterally with right side worse than left side and rhonchi bilaterally. Cardiovascular: Regular rate and rhythm with no murmur noted. Gastrointestinal: Bowel sounds normoactive in all 4 quadrants. Soft, nontender, nondistended. Extremities: Right lower extremity pitting edema 1+. Left lower extremity pitting edema trace. No cyanosis. No clubbing. Dorsalis pedis 2+ bilaterally. Neurologic: Alert and oriented x1. Speech fluent. Follows commands. Difficulty hearing. LABORATORY DATA: White blood cells 41.48, hemoglobin 10.9, hematocrit 35.1, platelets 424,000. PERTINENT IMAGING DATA: Chest CT with contrast on 12/20/2018 revealed dense consolidation within the left upper lobe and left upper lobe atelectasis, mildly to moderately prominent mediastinal and left hilar lymph nodes. It is difficult to determine if there is an underlying lesion in the left upper lobe, ground glass infiltrates in the right lung, scattered granuloma, enlarged heart. No thoracic aortic aneurysm or dissection. No pleural effusions. Short-term followup recommended to ensure there is clearing and no underlying mass. ASSESSMENT: This is an 83-year-old female with a medical history of pulmonary fibrosis, chronic lymphocytic leukemia, bladder cancer, dementia, and hypertension. She had been initially admitted to the [facility] with pneumonia, and during this hospital stay, she developed a new onset atrial fibrillation with slow rate and slow response. She was transferred to our facility yesterday for infectious disease consultation and pulmonary consultation. 1. Acute hypoxic respiratory failure. 2. Left upper lobe pneumonia. 3. Pulmonary fibrosis. 4. Chronic lymphocytic leukemia. 5. Fall with rhabdomyolysis, improving; still c/o RLE pain 6. Significant family history of cancer PLAN: 1. Continue supplemental oxygen as needed. 2. Continue antibiotic and bronchodilators. We will start Solu-Medrol. 3. Follow up with chest x-ray, CBC, BMP, procalcitonin, sputum culture and blood culture; follow up RLE doppler per Dr. Mathur 4. Repeat CT after pneumonia is cleared up. Patient did state that she doesn't want any surgery at her age. 5. Dr. Mathur and Dr. Zeng are on board. 6. Continue GI and DVT prophylaxis. 7. Further recommendations pending hospital course. Thank you for the courtesy of this consult. Dictated by RICK Tam for Madonna Costa MD cc: RICK Tam MD [facility]
--- NOTE | 2018-12-23 19:22 | ECHO REPORT ---
ORDER DATE: 12/22/2018 INTERPRETING PHYSICIAN: Dr. Zeng CLINICAL INDICATIONS: Patient with abnormal EKG, possible sick sinus syndrome. M-MODE MEASUREMENTS: Left ventricle end diastole: 4.3 cm. Left ventricle end systole: 3.9 cm. Posterior wall: 1.2 cm. Interventricular septum: 1.3 cm. Left atrium: 4.3 cm. SUMMARY OF 2-DIMENSIONAL IMAGIN. There is mild degree of concentric LVH. The ventricular chamber appears to be somewhat enlarged. The global ejection fraction is decreased, estimated at 40% to 45%. There is some atypical contractility of the interventricular septum. 2. The aortic valve shows sclerosis of the cusps without stenosis. Color flow mapping shows moderate degree of aortic regurgitation. 3. The mitral valve shows also some thickening with a mild to moderate degree of regurgitation. 4. The pulsed wave Doppler of mitral inflow shows a pseudo normal pattern with a tall E wave and a short A wave. 5. The tissue Doppler of septal and lateral mitral annulus averages 7 cm. 6. The left atrial pressure is probably elevated. 7. There is moderate calcification of the mitral annulus. 8. The pulmonic valve appears to be grossly normal. Color flow mapping indicates a mild degree of regurgitation. The pulmonary diastolic pressure appears to be elevated. It is estimated grossly at 26 mmHg. The pulmonary systolic pressure is estimated at 36 mmHg. 9. The right atrium and the right ventricle may be a little bit enlarged. 10.There is no pericardial effusion, mass, and no thrombus. CONCLUSION: In summary, the study shows 1. Mild enlargement of the left ventricle with mild to moderate impairment of the systolic function. Ejection fraction 40% to 45% with wall motion abnormality at the level of the septum. 2. Moderate degree of aortic regurgitation. 3. Suspect elevation of the left atrial pressure. 4. Significant enlargement of the left atrium. 5. Mild to moderate degree of mitral regurgitation. 6. Pulmonary pressure 36/26. Clinical correlation recommended. cc: MD Florencia Aguillon CRNP
[2018-12-23] MEDS: PERICOLACE PO SCH (22:14)
[2018-12-24] MEDS: DUONEB (A & A) INH SCH ×4 (03:31→22:30)
[2018-12-24] MEDS: PRILOSEC PO SCH (07:05)
[2018-12-24] MEDS: LOVENOX SUBQ SCH (07:05)
--- NOTE | 2018-12-24 07:08 | Diag Imaging Result Doc PS360 ---
EXAM: CHEST-1 VIEW 12/24/2018 HISTORY: SOB TECHNIQUE: AP portable at 0622 COMMENT: There is opacification and increased volume loss in the left apex compared to 12/20/2018. Otherwise are has been no appreciable change. The possibility of adenopathy or a mass in the left hilum is suggested. The previous CT examination of 12/20/2018 demonstrated obstruction of the left upper lobe bronchus. IMPRESSION: Worsening atelectasis plus minus pneumonia left upper lobe. Electronically signed by Mateo Vogel 12/24/2018 7:06 AM
--- NOTE | 2018-12-24 07:35 | EKG Report ---
Test Performed on : 12/23/2018 12:22:58 PM Test Reason : atrial fibrillation/sick sinus syndrome Blood Pressure : / mmHG Vent. Rate : 057 BPM Atrial Rate : 049 BPM P-R Int : 000 ms QRS Dur : 148 ms QT Int : 478 ms P-R-T Axes : 000 094 -46 degrees QTc Int : 465 ms Atrial fibrillation. with slow ventricular response. Rightward axis Left bundle branch block Abnormal ECG When compared with ECG of 22-DEC-2018 07:56, (Unconfirmed) No significant change was found Confirmed by Kenrick DICKEY, Maycol De Paz ([id number]) on 12/24/2018 12:42:33 PM
[2018-12-24 07:49] LABS: BASO# 0.04 X1000 (0.0-0.2); BASO% 0.1 % (0.0-0.8); EOS# 0.02 X1000 (0.0-0.7); EOS% 0.1 % (0.0-10.0); HEMATOCRIT 34.7 % (37.0-47.0); IMM GRAN# 0.13 X1000 (0.0-0.04); IMM GRAN% 0.4 % (0.0-0.5); LYMPH# 30.89 X1000 (1.2-3.4); LYMPH% 85.8 % (20.5-51.1); MCH 29.4 PG (27-31); MCHC 31.7 g/dL (33-37); MCV 92.8 FL (81-99); MONO# 0.35 X1000 (0.11-0.59); NEUT# 4.56 X1000 (1.4-6.5); NEUT% 12.6 % (42.2-75.2); PLT 122 X1000 (130-400); RBC 3.74 XMIL (4.2-5.4); RDW 14.6 % (11.5-14.5); WBC 35.99 X1000 (4.8-10.8)
[2018-12-24 08:14] LABS: CALCIUM 8.3 mg/dL (8.8-10.2); POTASSIUM 4.7 mmol/L (3.5-5.1)
[2018-12-24 08:16] LABS: LYMPHS 82 % (21-51); SEGS 14 % (42-75)
[2018-12-24] MEDS: SOLU-MEDROL IV SCH ×3 (09:41→21:15)
[2018-12-24] MEDS: KLOR-CON PO SCH (09:41)
[2018-12-24] MEDS: MAXIPIME 2 GM in NS 50 ML IV SCH ×2 (09:41→21:33)
[2018-12-24] MEDS: MIRALAX PO SCH (09:42)
[2018-12-24] MEDS: ROBITUSSIN-DM PO PRN (09:48)
[2018-12-24] MEDS: XANAX PO SCH ×2 (09:50→21:14)
[2018-12-24 10:12] LABS: ALLEN TEST YES; BE -9.1 mmoll (-3.0-3.0); BLOOD TYPE ARTERIAL; HCO3-(ACT) 17.7 mmoll (20.0-26.0); METHB 1.8 % (0.0-1.5); O2(CT) 15.4 mL/dL (15.0-23.0); O2HB 93.1 % (95.0-99.0); PCO2(98.6) 32 mmHg (35-45); PO2(98.6) 75 mmHg (60-100); SAMPLE BLOOD; SAO2 96.8 % (95.0-100.0); THB 11.7 g/dL (11.5-17.4); pH(98.6) 7.31 (7.35-7.45)
[2018-12-24 10:13] LABS: MODALITY CANNULA
[2018-12-24] MEDS: ZYVOX 600 MG/D5W 600 MG/300 ML IVPB IV SCH (11:08)
[2018-12-24] MEDS: TESSALON PO PRN (11:21)
--- NOTE | 2018-12-24 12:34 | PROGRESS NOTE ---
DATE: 12/24/2018 SUBJECTIVE: This morning, Ms. Bennett refers to be feeling fairly the same. Still having some cough and some residual shortness of breath. OBJECTIVE: Vital Signs: Blood pressure is 130/59, pulse of 69, respirations are 20, temperature is 97.7 degrees, patient is saturating 95% on 3 L. General Examination: Ms. Bennett is an 83-year- old, elderly, female. She is in bed. No distress. HEENT: Mucosa is pink and moist. Anicteric. Acyanotic. Neck: Supple. Chest: Air entry is bilaterally reduced, more so to the left posterior lung cornejo. Cardiovascular: Regular rate and rhythm. Abdomen: Soft, nontender. Extremities: No pedal edema. NAIL KEGGER: The patient is awake, alert, and follows commands. Laboratory Data: WBC is 35.99, hemoglobin is 11.0, platelet count 122,000. Chemistry is also reviewed. Normal function. Bicarb is at 18. Imaging Studies: Have all been reviewed. A chest x-ray this morning showed worsening atelectasis plus/minus pneumonia in the left upper lobe. ASSESSMENT: 1. Left upper lobe pneumonia with atelectasis and volume loss. There is also concern for a perihilar mass. The patient is being seen by infectious disease and pulmonary medicine. She does not want any form of surgery or intervention in terms of bronchoscopy to figure out if there is any mass. For now, the patient will be treated with antibiotics and let her follow up with pulmonary medicine on an outpatient basis. 2. Atrial fibrillation, currently rate controlled. 3. Rhabdomyolysis after a fall, stable. 4. History of chronic lymphocytic leukemia, noted. 5. Immunoglobulin G deficiency. 6. Generalized weakness and deconditioning. Patient is pending rehab placement. cc: Mohamud Iglesias MD
--- NOTE | 2018-12-24 13:55 | INFECTIOUS DISEASE PROGRESS NO ---
DATE: 12/24/2018 PRESENT ILLNESS: The patient has pneumonia which seems to be worsening in the left upper lobe. Patient has pulmonary fibrosis, which may be a factor that would be predisposing the patient to a superimposed pneumonia. Also the patient has been found to have a low IgG level at 363 and a low IgA level at 47. These 2 factors would also make the patient more likely to have pneumonia. MEDICATIONS: This is day 2 of treatment with the combination of cefepime and Zyvox. PHYSICAL EXAMINATION: Vital Signs: Temperature is 97.7 degrees, pulse 69, respirations 20, blood pressure 130/59. General: This is a somewhat ill-appearing, elderly female. She is in no acute distress. Head, eyes, ears, nose and throat: She has decreased hearing. She can see near objects. She does not have any white coating on her tongue. Neck: The patient does not have any pain when she moves her head. Lungs: Clear to auscultation. Cardiovascular: Heart rate is regular. Abdomen: Soft and nontender. Neurologic: The patient is alert. She has decreased hearing. She can move her extremities. She is weak. Extremities: The patient has a swollen right leg. LAB AND RADIOLOGY: The patient's chest x-ray shows worsening left upper lobe pneumonia. The patient's CBC shows a white count of 35,990, hemoglobin 11 and platelet count 122,000. Blood gases show a pH of 7.31, a PO2 of 75, and a pCO2 of 32. The creatinine is 1.0. GFR is 53. IgG is 363, IgA is 47. ASSESSMENT AND PLAN: The patient has pneumonia, possibly superimposed on pulmonary fibrosis. She also has an immunoglobulin deficiency. My plan is to continue both cefepime and Zyvox. Also, I am going to give the patient an immunoglobulin infusion because of her low IgG level. Since the patient has a very low IgG level and she also has chronic lymphocytic leukemia which has been associated with a low immunoglobulin level, I think the patient should start getting regular monthly infusions of immunoglobulin. The patient's gammaglobulin will increase the IgG level however there is no replacement product for IgA. COMORBIDITIES: The patient is elderly. She is said to have pulmonary fibrosis. She does have chronic lymphocytic leukemia. Patient has an immunoglobulin deficiency as well. cc: MD MAGGIE Kelly
--- NOTE | 2018-12-24 15:10 | Extremity Venous Study ---
PROCEDURE NAME: Venous U/S Right Leg - 12/22/2018 PROCEDURE: Right lower extremity venous ultrasound. DATE OF STUDY: 12/22/2018. MIX TECHNICIAN: Abad. REQUESTING PHYSICIAN: Kevan. INDICATIONS: Shortness of breath. FINDINGS: Deep and superficial veins right lower extremity were visualized along their course. All vessels appear compressible with forward flow. No evidence of intraluminal thrombus. SUMMARY: No deep or superficial thrombus in the right lower extremity. cc: MD Casey Araujo MD
[2018-12-24] MEDS: GAMUNEX-C 10% IV SCH (15:58)
--- NOTE | 2018-12-24 16:27 | HEMO/ONC CONSULTATION ---
DATE: 12/24/2018 REASON FOR CONSULTATION: History of chronic lymphocytic leukemia. HISTORY OF PRESENT ILLNESS: The patient is an 83-year-old female known to our clinic for history of chronic lymphocytic leukemia. She is being admitted for a fall which she apparently fell by herself in her house. She was found by family members the next morning. She initially complained of neck and back pain but had no significant injuries from her fall. Her workup in the ER showed a 93% saturation on room air and a white blood cell count of 39.95. Her creatine kinase was 445, CK-MB 8.88, and negative troponin. She is being admitted for treatment of pneumonia. PAST MEDICAL HISTORY: Includes hypertension and CLL. PAST SURGICAL HISTORY: Hysterectomy. SOCIAL HISTORY: She denies any tobacco, alcohol, or illicit drug use. ALLERGIES: Codeine, sulfa. HOME MEDICATIONS: Xanax, cyanocobalamin injection, Lasix, Cozaar, Prilosec, MiraLAX, potassium. LABORATORY DATA: White blood cells 35.99, hemoglobin 11.0, hematocrit 34.7, platelets 122,000. Creatinine 1.0, calcium 8.3. DIAGNOSTIC DATA: Chest x-ray shows a mass, pneumonia, or an enlarged aorta in the upper left lung. CT of the thorax with contrast shows mediastinal and hilar adenopathy, and left upper lobe pneumonia and atelectasis. VITAL SIGNS: Temperature 98.3 degrees, pulse rate 57, blood pressure 125/37, O2 saturation 94% on 3 L by nasal cannula, 0/10 pain. PHYSICAL EXAMINATION: The patient is lying in bed, in no acute distress. HEENT: The patient is hard of hearing. Eyes EOMI, anicteric, Lungs: No crackles. Rhonchi noted. Patient had difficulty clearing her throat. Cardiac: S1, S2 noted. Regular rate and rhythm. Abdomen: Soft, nontender without masses. Neurologic: Alert and oriented x 3. No focal motor deficits. Ski without rashes. ASSESSMENT: 1. Left upper lobe pneumonia with atelectasis and volume loss. Chest Xray shows concern for a perihilar mass. The patient is being seen by infectious disease and pulmonary medicine. She does not want any form of surgery or intervention in terms of bronchoscopy to figure out if there is any mass. For now, the patient will be treated with antibiotics and let her follow up with pulmonary medicine on an outpatient basis. 2. Atrial fibrillation, currently rate controlled. 3. Rhabdomyolysis after a fall, stable. 4. History of chronic lymphocytic leukemia: Patient is stable and asymptomatic at this time. 5. Immunoglobulin G deficiency. 6. Generalized weakness and deconditioning. Patient is pending rehab placement. Dictated by RICK Crystal for Shahzad Smiley MD Patient seen and examined. As above. Patient known to us for chronic lymphocytic leukemia. Her counts have been relatively stable. No further workup is needed from this standpoint. Patient has not needed therapy so far. Continue current management for her pneumonia. Physical therapy is involved. Continue current management. Shahzad Smiley M.D. cc: Shahzad Smiley MD MTDDonis
[2018-12-24] MEDS: PERICOLACE PO SCH (21:14)
[2018-12-24] MEDS: MAXIPIME 2 GM in NS 100 ML IV SCH (23:02)
[2018-12-25] MEDS: DUONEB (A & A) INH SCH ×4 (03:15→22:10)
[2018-12-25 05:17] LABS: ALLEN TEST YES; BE -8.6 mmoll (-3.0-3.0); BLOOD TYPE ARTERIAL; HCO3-(ACT) 18.1 mmoll (20.0-26.0); METHB 1.2 % (0.0-1.5); O2(CT) 12.3 mL/dL (15.0-23.0); O2HB 91.4 % (95.0-99.0); PCO2(98.6) 37 mmHg (35-45); PO2(98.6) 67 mmHg (60-100); SAMPLE BLOOD; SAO2 94.4 % (95.0-100.0); THB 9.5 g/dL (11.5-17.4); pH(98.6) 7.28 (7.35-7.45)
[2018-12-25 05:18] LABS: MODALITY CANNULA
[2018-12-25] MEDS: SOLU-MEDROL IV SCH ×2 (06:26→18:09)
[2018-12-25] MEDS: ZYVOX PO SCH ×3 (06:26→20:13)
[2018-12-25] MEDS: LOVENOX SUBQ SCH (06:27)
[2018-12-25 08:05] LABS: BASO# 0.05 X1000 (0.0-0.2); BASO% 0.1 % (0.0-0.8); EOS# 0.01 X1000 (0.0-0.7); HEMATOCRIT 32.8 % (37.0-47.0); HEMOGLOBIN 10.2 g/dL (12.0-16.0); IMM GRAN# 0.29 X1000 (0.0-0.04); IMM GRAN% 0.6 % (0.0-0.5); LYMPH# 40.78 X1000 (1.2-3.4); LYMPH% 84.2 % (20.5-51.1); MCH 29.1 PG (27-31); MCHC 31.1 g/dL (33-37); MCV 93.7 FL (81-99); MONO# 0.96 X1000 (0.11-0.59); MPV 10.3 FL (7.4-10.4); NEUT# 6.37 X1000 (1.4-6.5); NEUT% 13.1 % (42.2-75.2); PLT 141 X1000 (130-400); RDW 14.9 % (11.5-14.5); WBC 48.46 X1000 (4.8-10.8)
[2018-12-25 08:10] LABS: ALB/GLOB RATIO 1.4; ALBUMIN 3.6 g/dL (3.5-5.0); CALCIUM 8.7 mg/dL (8.8-10.2); POTASSIUM 4.6 mmol/L (3.5-5.1); TOTAL BILIRUBIN 0.48 mg/dL (0.20-1.00); TOTAL PROTEIN 6.1 g/dL (6.3-8.3)
[2018-12-25 09:37] LABS: LYMPHS 84 % (21-51); MONO 2 % (1-9); SEGS 14 % (42-75)
[2018-12-25] MEDS: GAMUNEX-C 10% IV SCH (10:06)
[2018-12-25] MEDS: KLOR-CON PO SCH (10:19)
[2018-12-25] MEDS: PRILOSEC PO SCH (10:20)
[2018-12-25] MEDS: TESSALON PO PRN (10:20)
[2018-12-25] MEDS: ROBITUSSIN-AC PO PRN (10:20)
[2018-12-25] MEDS: MIRALAX PO SCH (10:20)
[2018-12-25] MEDS: XANAX PO SCH ×2 (10:20→20:13)
[2018-12-25] MEDS: MAXIPIME 2 GM in NS 100 ML IV SCH ×2 (10:51→20:13)
[2018-12-25] MEDS: TYLENOL PO PRN (13:35)
--- NOTE | 2018-12-25 15:36 | INFECTIOUS DISEASE PROGRESS NO ---
DATE: 12/25/2018 PRESENT ILLNESS: Ms. Bennett is being treated for pneumonia on top of pulmonary fibrosis. There is also an immunoglobulin deficiency. Today she is complaining of abdominal pain and distention. The patient also has a leukocytosis, in part due to the administration of steroids. MEDICATIONS: Today is day 3 of treatment with cefepime 2 g IV every 12 hours and Zyvox 600 mg by mouth every 12 hours. She is also receiving IV Solu-Medrol. She received 1 dose of IVIG yesterday. PHYSICAL EXAMINATION: Vital Signs: Temperature is 97.9 degrees, pulse rate 77, respiratory rate 16, blood pressure 146/72, O2 saturation is 97% on 3 L nasal cannula. General: This is an elderly, chronically ill-appearing female. She is lying in bed, currently in mild distress due to abdominal pain. HEENT: Atraumatic, normocephalic. Oral mucous membranes are pink and moist. Conjunctivae are pale. Neck: Supple. Trachea is midline. Cardiovascular: Heart rate is regular. Respiratory: Lung sounds have coarse rhonchi noted bilaterally. Abdomen: Soft. Tender, particularly to the right upper and lower quadrants which extends to the midepigastric area. She states it is also more swollen than usual. Neurologic: She is awake, alert, and oriented. Able to move all extremities with generalized weakness noted. She has been up walking with physical therapy today. LABORATORY AND X-RAY: Today her white count is 48.46, hemoglobin 10.2, platelet count 141,000. This morning on 3 L nasal cannula her pH was 7.28, pCO2 37, PO2 67, HC03 18.1. Her creatinine is 1, GFR 53. Total bilirubin 0.48, AST 31, ALT 24, alkaline phosphatase 73. ASSESSMENT AND PLAN: Ms. Bennett is being treated for pneumonia. We will continue cefepime and Zyvox as ordered at this time. Today she is complaining of abdominal pain and distention. We will do a CT of the abdomen and pelvis with contrast, which has been discussed with Dr. Iglesias. There is also an immunoglobulin deficiency which was treated yesterday. We will follow up with her in 6-8 weeks on her immunoglobulin level. The patient has CLL and is also taking steroids, which does contribute to her leukocytosis. These plans have been discussed with and recommended by Dr. Mathur. COMORBIDITIES: For Ms. Bennett include that she is elderly with pulmonary fibrosis, chronic lymphocytic leukemia, and immunoglobulin deficiency. Dictated by RICK Casanova for Casey Mathur MD cc: Casey Mathur MD MTDD
[2018-12-25] MEDS: ZOFRAN IV PRN ×2 (16:03→20:27)
--- NOTE | 2018-12-25 16:16 | PROGRESS NOTE ---
DATE: 12/25/2018 SUBJECTIVE: Ms. Bennett refers to be feeling fairly okay. She still has cough. OBJECTIVE: Vital signs: Blood pressure is 146/72, pulse is 77, respirations 16, temperature 97.9 degrees. The patient has been afebrile. General: Ms. Bennett is an 83-year-old female. She is in bed no distress. HEENT: Mucosa is pink and moist. Anicteric. Acyanotic. Neck: Supple. Chest: Air entry is bilaterally reduced. There is a expiratory wheezing in both lung cornejo. CARDIOVASCULAR: Regular rate and rhythm. No murmurs. GI: Abdomen soft, nontender. Bowel sounds present. Extremities: No pedal edema. BLANKET WINDER HELPER: Patient is awake, alert, and oriented. LABORATORY DATA: WBC is up to 48.46, hemoglobin is 10.2, platelet count of 141,000. The patient has 84% of lymphocyte, which is consistent with her history of CLL. Chemistry is also reviewed and is unremarkable. ASSESSMENT: 1. Left upper lobe pneumonia with atelectasis and volume loss. There is a perihilar infiltrate concerning for mass. Patient, however, does not want any further investigations on this. She does not want bronchoscopy. She does not want any sampling. 2. History of atrial fibrillation, currently rate controlled. 3. Mild rhabdomyolysis after a fall, stable. 4. History of chronic lymphocytic leukemia, currently asymptomatic. Dr. Smiley is on board. 5. IgG immunodeficiency patient is getting infusion. 6. Generalized weakness and deconditioning. Patient is pending rehab placement. So in general I think Ms. Bennett is clinically stable. We will continue with the current antibiotics and symptomatic management of the cough. She is pending rehab placement. cc: Mohamud Iglesias MD
--- NOTE | 2018-12-25 16:27 | Diag Imaging Result Doc PS360 ---
EXAM: CT ABD/PELVIS W/PO AND IV CON 12/25/2018 HISTORY: abdominal pain TECHNIQUE: This exam was performed using automated exposure control, adjustment of mA or kV according to patient size, and/or use of iterative reconstruction technique. COMMENT: The current examination is compared with the previous study of 09/17/2011 there are calcified granulomata in the right middle lobe. There is some patchy air trapping in the lung bases. There is a pleural-based nodule present in the right lower lobe on image 17 which has not changed significantly since the previous examination. There are bilateral pleural effusions which were not previously present, more so on the left than the right. There is an apparent filling defect on the left side of the left atrium which in retrospect may have been present on 12/20/2018 and may represent a thrombus. There is a hiatal hernia. There are some atherosclerotic calcifications in the aorta. There is no evidence of aneurysm and the mesenteric and renal arteries appear to be patent. There are no apparent gallstones. The adrenal glands and pancreas are normal in appearance. The spleen is not enlarged. There are bilateral renal cysts including parapelvic cysts. There is no apparent hydronephrosis. There is a masslike abnormality in the right abdominal wall with apparent dense contrast extravasation. This is most likely a hematoma. It measures at least 9.5 x 6.9 x 8 cm. There is fluid in the colon. There is some small bowel fluid. There is no evidence of bowel obstruction. Pelvis: There is fluid in the rectum. There has been hysterectomy. The urinary bladder is not distended. There is a spigelian hernia on the left containing a loop of descending colon without evidence of obstruction. This has not changed since 2011. There is bilateral spondylolysis at L5. There is no evidence of acute bony abnormality. IMPRESSION: 1. Right abdominal wall hematoma with apparent active arterial extravasation. 2. Possible left atrial thrombus. 3. The possibility of mild enterocolitis cannot be excluded. 4. Left spigelian hernia, chronic. The findings were discussed with RICK Carr at 12/25/2018 4:25 PM. Electronically signed by Mateo Vogel 12/25/2018 4:25 PM
--- NOTE | 2018-12-25 17:06 | PROGRESS NOTE ---
DATE: 12/25/2018 ADDENDUM TO PROGRESS NOTE: This afternoon I was called by the nurses because of Ms Bennett complaining of abdominal pain. When I went to evaluate her, she did have tenderness to the abdominal wall, more so to the right flank and she looks slightly pale. I think early on today she did had a similar complaint so ID ordered a CT scan of the abdomen which has revealed a right abdominal wall hematoma with apparent active arterial extravasation. Patient clinically looks slightly pale so we are going to do stat hemoglobin and hematocrit and also trend her hemoglobin and hematocrit every 4 to 6 hours. Surgery has been consulted and we will wait for their further recommendations. I have discontinued the prophylactic Lovenox. We will use pneumatic intermittent compression stockings for DVT prophylaxis. I have notified Ms. Bennett about the results of the CT scan report. cc: Mohamud Iglesias MD
[2018-12-25 17:17] LABS: HEMATOCRIT 31.9 % (37.0-47.0); HEMOGLOBIN 9.6 g/dL (12.0-16.0)
[2018-12-25 17:30] LABS: INR 1.16; PROTIME 15.7 Seconds (11.0-16.0)
[2018-12-25] MEDS: DILAUDID IV PRN (18:08)
[2018-12-25 20:03] LABS: HEMATOCRIT 31.8 % (37.0-47.0); HEMOGLOBIN 9.7 g/dL (12.0-16.0)
[2018-12-25] MEDS: PERICOLACE PO SCH (20:13)
--- NOTE | 2018-12-25 21:26 | GENERAL SURGERY CONSULTATION ---
DATE: 12/25/2018 REASON FOR CONSULTATION: Abdominal wall hematoma with active extravasation. HISTORY OF PRESENT ILLNESS: This is an 83-year-old female who has been falling recently. She fell the day before admission and apparently was down on the floor for quite some time. She was then brought into the emergency room for further evaluation. Her workup was concerning for pneumonia and she was admitted for further treatment. During her hospital stay earlier today, she started complaining of abdominal pain and feeling more distended. A CT scan was done this afternoon which showed an apparent abdominal wall hematoma on the right with active extravasation. PAST MEDICAL HISTORY: 1. Hypertension. 2. Chronic lymphocytic leukemia. 3. Pulmonary fibrosis. 4. History of dementia. 5. Hypertension. 6. History of bladder cancer. PAST SURGICAL HISTORY: 1. Partial hysterectomy. 2. Back surgery. 3. Hernia repair. ALLERGIES: Codeine, Sulfa. FAMILY HISTORY: Positive for congestive heart failure, liver cancer, breast cancer, and lung cancer. SOCIAL HISTORY: She lives alone at home. No alcohol, tobacco, or illicit drug use. REVIEW OF SYSTEMS: Ten systems were reviewed and negative except as noted above. CURRENT MEDICATIONS: 1. Albuterol/Atrovent nebulizers. 2. Xanax. 3. Tessalon. 4. Cefepime. 5. Guaifenesin. 6. Zyvox. 7. Solu-Medrol. 8. Prilosec. 9. Zofran. 10. MiraLax. 11. Klor-Con. 12. Maria M-Colace. 13. Trazodone. PHYSICAL EXAMINATION: Vital Signs: Temperature 97.5 degrees, pulse 74, respirations 14, blood pressure 137/71, O2 saturation 97%. General: Elderly, frail female in no distress, who looks her stated age. HEENT: Normocephalic, atraumatic. Extraocular muscles intact. Pupils equal, round, reactive to light. Sclerae anicteric. Moist mucous membranes. Neck: Supple. No thyromegaly. CV: Regular rate and rhythm. Respiratory: Bilateral breath sounds. No work of breathing. Gastrointestinal: Soft, nondistended. No organomegaly or mass. There is some mild bruising in the right flank and right lower quadrant, but no palpable mass or hematomas appreciated. She is mildly tender on the right side. No rebound or guarding. No hernias. Extremities: No clubbing, cyanosis, or edema. Skin: Warm and dry. No rash. Musculoskeletal: Moves all extremities equally and well. LABORATORY: Metabolic profile reviewed and unremarkable. Hemoglobin 9.6, hematocrit 31.9, platelet count 141,000. ASSESSMENT AND PLAN: An 83-year-old female with abdominal wall hematoma of unknown etiology. It is somewhat concerning for active extravasation, but clinically on physical exam, there is no significant mass there. She is hemodynamically stable. Her hemoglobin and hematocrit have not changed significantly since this morning. We are going to continue observation at this time. I agree with serial hemoglobins and hematocrits and abdominal exam, and holding anticoagulation. Thank you for the consultation. cc: Bert Larios MD
[2018-12-26] MEDS: DILAUDID IV PRN ×2 (02:34→15:06)
[2018-12-26 02:44] LABS: HEMOGLOBIN 9.5 g/dL (12.0-16.0)
[2018-12-26] MEDS: DUONEB (A & A) INH SCH ×4 (03:15→22:50)
[2018-12-26] MEDS: PRILOSEC PO SCH (06:09)
[2018-12-26] MEDS: SOLU-MEDROL IV SCH ×2 (06:09→18:24)
[2018-12-26 08:12] LABS: BASO# 0.44 X1000 (0.0-0.2); BASO% 0.4 % (0.0-0.8); EOS# 0.03 X1000 (0.0-0.7); HEMATOCRIT 29.2 % (37.0-47.0); HEMOGLOBIN 8.9 g/dL (12.0-16.0); IMM GRAN# 1.44 X1000 (0.0-0.04); IMM GRAN% 1.2 % (0.0-0.5); LYMPH# 99.72 X1000 (1.2-3.4); LYMPH% 85.7 % (20.5-51.1); MCH 29.8 PG (27-31); MCHC 30.5 g/dL (33-37); MCV 97.7 FL (81-99); MONO# 3.25 X1000 (0.11-0.59); MONO% 2.8 % (1.7-9.3); MPV 9.8 FL (7.4-10.4); NEUT# 11.49 X1000 (1.4-6.5); NEUT% 9.9 % (42.2-75.2); PLT 177 X1000 (130-400); RBC 2.99 XMIL (4.2-5.4); RDW 15.3 % (11.5-14.5); WBC 116.37 X1000 (4.8-10.8)
[2018-12-26 08:17] LABS: ALB/GLOB RATIO 0.9; ALBUMIN 3.5 g/dL (3.5-5.0); CALCIUM 9.3 mg/dL (8.8-10.2); CREATININE 1.3 mg/dL (0.5-0.9); POTASSIUM 5.9 mmol/L (3.5-5.1); TOTAL BILIRUBIN 0.43 mg/dL (0.20-1.00); TOTAL PROTEIN 7.2 g/dL (6.3-8.3); URIC ACID 8.1 mg/dL (2.4-5.7)
[2018-12-26] MEDS: KLOR-CON PO SCH (09:19)
[2018-12-26] MEDS: XANAX PO SCH ×2 (09:20→20:21)
[2018-12-26] MEDS: ZYVOX PO SCH ×2 (09:20→20:22)
[2018-12-26] MEDS: MIRALAX PO SCH (09:21)
[2018-12-26] MEDS: MAXIPIME 2 GM in NS 100 ML IV SCH ×2 (09:23→20:24)
[2018-12-26 10:07] LABS: ANISOCYTOSIS 2+; LYMPHS 85 % (21-51); MONO 3 % (1-9); SEGS 12 % (42-75)
--- NOTE | 2018-12-26 13:12 | Diag Imaging Result Doc PS360 ---
EXAM: CHEST-1 VIEW 12/26/2018 HISTORY: SOB TECHNIQUE: Erect AP portable at 1259 COMMENT: There has been no appreciable change since 12/20/2018. There is still some volume loss and pleural thickening in the left upper chest. IMPRESSION: Stable chest. Electronically signed by Mateo Vogel 12/26/2018 1:10 PM
--- NOTE | 2018-12-26 14:00 | HEMO/ONC PROGRESS NOTE ---
DATE: 12/26/2018 SUBJECTIVE: Patient is lying flat in bed. She is very hard of hearing but denies any complaints this morning. OBJECTIVE: Vital Signs: Temperature 98 degrees, pulse rate 77, respiratory rate 16, blood pressure 123/48. She is 97% on 2 L via nasal cannula. She is in 0/10 pain this morning. PHYSICAL EXAMINATION: General: Alert and awake. Hard of hearing. No acute distress. Cardiovascular: S1, S2 noted. Regular rate and rhythm. Respiratory: Bilateral breath sounds. No increased work of breathing. Gastrointestinal: Soft, nondistended. Bruising noted to her right lower quadrant. No palpable mass. The patient is tender in the right lower and right upper quadrant. Neurological: Awake and alert. Musculoskeletal: Moves all extremities. No edema noted. ASSESSMENT: 1. Left upper lobe pneumonia with atelectasis and volume loss. 2. Atrial fibrillation, currently rate controlled. 3. History of chronic lymphocytic leukemia. 4. Immunoglobulin G deficiency. 5. Generalized weakness and deconditioning. 6. Abdominal wall hematoma. PLAN: Patient continues to be treated for left pleural effusion. She is stating that she does not want a bronchoscopy. This patient is known to us for her chronic lymphocytic leukemia. Her counts have been relatively stable. There is no workup needed from our standpoint. She has not needed therapy in the clinic thus far. Continue her current management for pneumonia and the abdominal wall hematoma. We will continue to follow along as needed. Dictated by RICK Crystal for Shahzad Smiley MD Patient seen and examined. As above. Patient has been diagnosed to have abdominal wall hematoma. Her white count has rapidly increased as a leukemoid reaction to her bleeding. Continue to simply monitor for now. Discussed with Dr. Iglesias. Shahzad Smiley M.D. cc: Shahzad Smiley MD [facility]
--- NOTE | 2018-12-26 14:22 | GENERAL SURGERY PROGRESS NOTE ---
DATE: 12/26/2018 SUBJECTIVE: The patient has had no acute changes overnight. She is sore on her right side. OBJECTIVE: She is afebrile. Vital signs are stable. General: She is awake, alert, and oriented x3. No acute distress. GI: Soft. Mildly tender on the right side where there is some ecchymosis and mild swelling. Laboratory: White blood cell count 116, hemoglobin 8.9, hematocrit 29.2. Electrolytes notable for potassium of 5.9, BUN 39, creatinine 1.3. ASSESSMENT AND PLAN: An 83-year-old female with pneumonia and right abdominal wall hematoma. She is hemodynamically stable. We will continue observation for now. I think it is unlikely she will require any operative intervention for the hematoma. cc: Bert Larios MD
[2018-12-26 14:35] LABS: HEMATOCRIT 34.8 % (37.0-47.0); HEMOGLOBIN 10.1 g/dL (12.0-16.0)
[2018-12-26] MEDS ORDERED: ALBUTEROL 0.5% INH CONC FOR HYPERKALEMIA INH ONE (15:23)
--- NOTE | 2018-12-26 15:59 | PROGRESS NOTE ---
DATE: 12/26/2018 SUBJECTIVE: This morning Ms. Bennett refers to be feeling the same. No major improvement. She is still coughing. The son and the daughter were at the bedside at the time of the encounter and I had an extensive conversation with them. OBJECTIVE: Current Vitals: Blood pressure is 150/76, pulse of 75, respirations 18, temperature 97.4. The patient was saturating about 94% on nasal cannula. General: Ms. Bennett is an 83-year- old female. She is in bed. Mild in mild respiratory distress HEENT: Mucosa is pink and moist. Anicteric. Acyanotic. Neck: Supple. Chest: Air entry is bilaterally reduced. There are still some crackles in the posterior lung field with wheezing. Cardiovascular: Slightly tachycardic, but no murmur. Gastrointestinal: Abdomen is soft, it is distended. There is some tenderness to the right flank with a palpable mass. Central Nervous System: Patient is awake, alert, and oriented. Extremities: No pedal edema. LABORATORY DATA: WBC is up to 116.37, hemoglobin is 8.9, repeat is 10.1, platelet count of 177,000. There are 85% of lymphocytes on the blood test on the peripheral smear. Chemistry is also reviewed. Creatinine is 1.3. ASSESSMENT: 1. Left upper lobe pneumonia with atelectasis. There is also concerning for a left perihilar mass. The patient does not want any investigation. We will continue with the current antimicrobial coverage. 2. History of atrial fibrillation, currently rate controlled. 3. Mild rhabdomyolysis, resolved. 4. History of CLL, currently asymptomatic. Patient's white cell count has gone up to 116.37 this morning. I have communicated directly with Dr. Smiley, the Heme/Onc on board. He thinks this is just a leukemoid reaction. However, the differential suggests that the lymphocyte more predominant, about 85%. We will follow up with further recommendations from him. 5. Hyperkalemia we will address this with acute management and we will also discontinue the potassium supplements. 6. Acute kidney injury. We will continue with gentle hydration. 7. Right abdominal wall hematoma. The patient has been evaluated by Surgery. No intervention at this time. 8. Poor prognosis. Ms. Bennett has CLL and also has this mass in the left upper lobe with volume loss. Her general medical status seems to be remarkably poor. She has extremely poor performance status. I have discussed with the family members and it appears that they have already discussed with Dr. Woodall who is the primary care about hospice services and they are requesting that we consult hospice, so I will put in a Palliative Care Consult for hospice. cc: Mohamud Iglesias MD MTDD
[2018-12-26] MEDS: ZOFRAN IV PRN (16:19)
[2018-12-26] MEDS ORDERED: DILAUDID IV PRN (17:32)
[2018-12-26] MEDS: LOKELMA POWDER PACKET PO SCH (18:45)
[2018-12-26] MEDS: PERICOLACE PO SCH (20:22)
[2018-12-26] MEDS: ROBITUSSIN-AC PO PRN ×2 (20:33→20:37)
[2018-12-26 21:14] LABS: HEMATOCRIT 32.2 % (37.0-47.0); HEMOGLOBIN 9.4 g/dL (12.0-16.0)
--- NOTE | 2018-12-26 21:19 | INFECTIOUS DISEASE PROGRESS NO ---
DATE: 12/26/2018 PRESENT ILLNESS: Ms. 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 She has a significant leukocytosis in a patient with chronic lymphocytic leukemia and steroid administration. MEDICATIONS: Today is day 4 of treatment using cefepime 2 g IV every 12 hours and Zyvox 600 mg by mouth every 12 hours. The patient has received a dose of IVIG on this admission. PHYSICAL EXAMINATION: Vital Signs: Temperature is 97.4 degrees, pulse rate 75, respiratory rate 18, blood pressure 150/76, O2 saturation is 96% on 3 L nasal cannula. General: This is a chronically ill-appearing, elderly female. She is lying in the bed, currently in no acute distress. HEENT: Atraumatic, normocephalic. Oral mucous membranes are pink and dry. Conjunctivae are pale. Neck: Supple. Trachea is midline. Respiratory: Lung sounds have coarse rhonchi noted bilaterally. Diminished in the bases. Cardiovascular: Heart rate is irregular. Appears to be atrial fibrillation on the monitor. Abdomen: Soft. Very tender to the right flank. Bowel sounds are active. Neurologic: She is awake, alert, and appropriate, and able to move her extremities with generalized weakness. LABORATORY AND X-RAY: Today, her white count is 116,000. Hemoglobin is 10.1. Platelet count is 177,000. Creatinine is 1.3. GFR 39. Total bilirubin 0.43, AST 33, ALT 24, alkaline phosphatase 76. LDH is 222. Chest x-ray this morning showed no major changes with pleural thickening in the left upper chest. ASSESSMENT AND PLAN: Ms. Bennett is being treated for a pneumonia and an immunoglobulin deficiency. There is a significant leukocytosis; however, this is most likely a stress response in a patient with chronic lymphocytic leukemia and steroid administration. She has had a dose of intravenous immunoglobulin on this admission, and we will follow up with her in 6 to 8 weeks as an outpatient regarding her immunoglobulin level. The CT of her abdomen did show a large right abdominal wall hematoma which is being followed by Dr. Larois. For now, we will continue her antibiotics as ordered. These plans have been discussed with and recommended by Dr. Mathur. COMORBIDITIES: Include that she is elderly with chronic lymphocytic leukemia, pulmonary fibrosis, immunoglobulin deficiency, and a large abdominal hematoma. Dictated by RICK Casanova for Casey Mathur MD cc: Casey Mathur MD MTDD
[2018-12-27] MEDS: DUONEB (A & A) INH SCH ×3 (03:40→21:33)
[2018-12-27] MEDS: PRILOSEC PO SCH ×2 (05:35→07:01)
[2018-12-27] MEDS: DILAUDID IV PRN ×3 (05:35→18:56)
[2018-12-27] MEDS: SOLU-MEDROL IV SCH ×2 (05:35→18:56)
[2018-12-27] MEDS: MAXIPIME 2 GM in NS 100 ML IV SCH (08:07)
[2018-12-27] MEDS: MIRALAX PO SCH (08:07)
[2018-12-27] MEDS: XANAX PO SCH (08:07)
[2018-12-27] MEDS: ZYVOX PO SCH (08:08)
[2018-12-27 10:41] LABS: BASO# 0.45 X1000 (0.0-0.2); BASO% 0.4 % (0.0-0.8); EOS# 0.03 X1000 (0.0-0.7); HEMATOCRIT 27.7 % (37.0-47.0); HEMOGLOBIN 8.7 g/dL (12.0-16.0); IMM GRAN# 1.81 X1000 (0.0-0.04); IMM GRAN% 1.6 % (0.0-0.5); LYMPH% 82.9 % (20.5-51.1); MCH 30.3 PG (27-31); MCHC 31.4 g/dL (33-37); MCV 96.5 FL (81-99); MONO# 4.36 X1000 (0.11-0.59); MONO% 3.7 % (1.7-9.3); MPV 9.7 FL (7.4-10.4); NEUT# 13.22 X1000 (1.4-6.5); NEUT% 11.4 % (42.2-75.2); PLT 145 X1000 (130-400); RBC 2.87 XMIL (4.2-5.4); RDW 15.2 % (11.5-14.5); WBC 116.47 X1000 (4.8-10.8)
[2018-12-27 11:18] LABS: ALB/GLOB RATIO 1.2; ALBUMIN 3.9 g/dL (3.5-5.0); CALCIUM 8.6 mg/dL (8.8-10.2); CREATININE 2.7 mg/dL (0.5-0.9); POTASSIUM 6.2 mmol/L (3.5-5.1); TOTAL BILIRUBIN 0.45 mg/dL (0.20-1.00); TOTAL PROTEIN 7.2 g/dL (6.3-8.3)
[2018-12-27 11:32] LABS: LYMPHS 90 % (21-51); NRBC 1 % (0-0); SEGS 10 % (42-75)
[2018-12-27] MEDS ORDERED: D50W SYRINGE IV ONE (13:28)
[2018-12-27] MEDS ORDERED: HUMULIN R SUBQ ONE (13:28)
[2018-12-27] MEDS ORDERED: ALBUTEROL 0.5% INH CONC FOR HYPERKALEMIA INH ONE (13:29)
[2018-12-27] MEDS ORDERED: NS 1,000 ML IV SCH (13:30)
[2018-12-27] MEDS: LOKELMA POWDER PACKET PO SCH (17:40)
[2018-12-27 18:26] LABS: URINE SOURCE CATH
[2018-12-27 18:50] LABS: BILIRUBIN URINE NEGATIVE (NEGATIVE); BLOOD URINE MODERATE (NEGATIVE); COLOR YELLOW; GLUCOSE URINE TRACE mg/dL (NEGATIVE); KETONE URINE 10 mg/dL (NEGATIVE); LEUKOCYTES URINE NEGATIVE (NEGATIVE); NITRITE URINE NEGATIVE (NEGATIVE); PH URINE 5.5; PROTEIN URINE 70 mg/dL (NEGATIVE); SP GRAVITY URINE 1.027; TURBIDITY URINE CLEAR (CLEAR); UROBILINOGEN URINE NORMAL (NORMAL)
[2018-12-27 18:52] LABS: UR EPITHELIAL CELLS <10 /HPF (<10); URINE BACTERIA NEGATIVE /HPF; URINE WBC <10 /HPF (<10)
--- NOTE | 2018-12-27 19:25 | GENERAL SURGERY PROGRESS NOTE ---
DATE: 12/27/2018 SUBJECTIVE: The patient has had no acute events overnight. She complains of some pain in her right flank and side. OBJECTIVE: Vital Signs: She is afebrile. Vital signs are stable. General: She is awake, alert, in no acute distress. Gastrointestinal: Soft, nondistended. She is mildly tender in her right flank where there is bruising, but no well-formed hematoma or mass. LABORATORY: Hemoglobin and hematocrit are 8.7 and 27.7 this morning. ASSESSMENT AND PLAN: An 83-year-old female with right flank hematoma. This appears to be stable. There are no acute surgical indications. We will sign off for now and be available as needed. cc: Bert Larios MD
[2018-12-27 19:26] LABS: CALCIUM 8.5 mg/dL (8.8-10.2); CREATININE 3.1 mg/dL (0.5-0.9); POTASSIUM 5.7 mmol/L (3.5-5.1)
--- NOTE | 2018-12-27 19:36 | PROGRESS NOTE ---
DATE: 12/27/2018 SUBJECTIVE: Today Ms. Bennett refers to be remarkably weak. She does not feel any better than yesterday. OBJECTIVE: Vital signs: Blood pressure 97/43, pulse of 100, respirations 24, temperature 97.7 degrees. The patient is saturating 98% on room air. General Exam: Ms. Bennett is an 83-year-old female. She is in bed. She is not in any cardiopulmonary distress. HEENT: Mucosa is pink and dry. Anicteric and acyanotic. Neck: Supple. Respiratory System: Air entry is bilaterally reduced. A few crackles posteriorly and some mild wheezing. Cardiovascular: Slightly tachycardic but no murmurs. No rubs. Gastrointestinal: Abdomen is soft, distended. There is some tenderness to the right flank with palpable mass. Central nervous system: Patient is awake, alert, oriented. LABORATORY DATA: WBC is 116,000, hemoglobin is 8.7, platelet count of 145,000. Potassium is 6.2, bicarb is 15, chloride is 108. IMAGING STUDIES: None today. ASSESSMENT: 1. Left upper lobe pneumonia with atelectasis. There is a left perihilar mass. This is all concerning for malignancy with postobstructive pneumonia. Patient is on IV antibiotics. She does not want any intervention. No biopsy. No bronchoscopy to be done. 2. History of atrial fibrillation, currently rate controlled. 3. History of chronic lymphocytic leukemia. WBC is remarkably high. Dr. Smiley is on board. 4. Hyperkalemia. We will continue to address. 5. Acute kidney injury. The patient is on gentle hydration. 6. Right abdominal wall hematoma. Surgery is on board. 7. Non-gap metabolic acidosis likely due to the degree of the renal failure. Prognosis continues to be remarkably poor. Ms. Bennett is currently DNR level 1. Family members are considering the possibility of hospice. cc: Mohamud Iglesias MD
[2018-12-27 22:10] LABS: BLOOD TYPE ARTERIAL; SAMPLE BLOOD
[2018-12-27 22:11] LABS: ALLEN TEST YES; BE -15.4 mmoll (-3.0-3.0); HCO3-(ACT) 12.9 mmoll (20.0-26.0); METHB 1.4 % (0.0-1.5); O2(CT) 11.9 mL/dL (15.0-23.0); O2HB 96.8 % (95.0-99.0); PCO2(98.6) 48 mmHg (35-45); PO2(98.6) 197 mmHg (60-100); SAO2 100.7 % (95.0-100.0); THB 8.4 g/dL (11.5-17.4)
[2018-12-27 22:13] LABS: MODALITY NRB; pH(98.6) 7.07 (7.35-7.45)
--- NOTE | 2018-12-28 00:24 | PULMONOLOGY PROGRESS NOTE ---
DATE: 12/27/2018 SUBJECTIVE: The patient is awake, alert, and conversant. She denies shortness of breath at rest. OBJECTIVE: Vital Signs: The patient has been afebrile for the last 24 hours. BP 97/43, heart rate 100, respiratory rate 24, oxygen saturation 98% on 5 L per nasal cannula. HEENT: Pupils are equal and reactive. Oropharynx appears clear. Neck: Supple. Chest: Reveals decreased breath sounds left apex. Cardiac: S1, S2. Abdomen: Soft. Extremities: Without edema. LABORATORIES: No new microbiology data. White blood count 116, hemoglobin 8.7, platelet count a 145,000. IMPRESSION: An 83-year-old with 1. Acute hypoxemic respiratory failure. 2. Left upper lobe pneumonia. 3. Immunoglobulin deficiency. 4. Chronic lymphocytic leukemia. RECOMMENDATIONS: 1. Continue bronchial hygiene. 2. Continue oxygen. 3. Continue antibiotics per Infectious Disease. 4. We will schedule follow-up chest x-ray tomorrow. cc: Ismael Le MD
[2018-12-28] MEDS: ZYVOX PO SCH (00:41)
[2018-12-28] MEDS: MAXIPIME 2 GM in NS 100 ML IV SCH ×2 (00:41→09:12)
[2018-12-28] MEDS: XANAX PO SCH (00:41)
[2018-12-28] MEDS: PERICOLACE PO SCH (00:42)
[2018-12-28] MEDS: DILAUDID IV PRN ×3 (03:28→09:08)
--- NOTE | 2018-12-28 03:52 | PROGRESS NOTE ---
DATE: 12/27/2018 Called to see patient because of families concern about her did deterioration, but I think also, generally speaking, it is just patient is actively dying. She has become poorly responsive. Now, she is on a non-rebreather because she has desaturated. It looks like she is in the middle of a blast crisis. Her white count had trended downward transiently and then went up to 48,000, then 116,000. In any case, family I think is on board with hospice and comfort care but they are very reluctant, especially the son I think, to stop antibiotics. I discussed that, at this point, I do not think continuing or discontinuing is going to affect her outcome, I mean an argument could be made that it could prolong her outcome, but I think she is in full-blown blast crisis. She has no affective immune system and she has multiorgan system damage from that. She has got renal failure, and now altered mental status. 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 In any case, I discussed with the family, so we are going to make her comfort care. I am going to continue the antibiotics for the time being just because they seem to be reluctant to stop that, and they really, at this point, just understand that she is actively dying. I do not think it is going to be more than 24 hours, but we will see how she does. I have stopped all her other medications, except for her comfort care measures. Hospice I think has already evaluated her. I do not know if they have reassessed her, but we will see how things go, but at this point, I think with her current progressive respiratory failure, it is not going to be very long. I have notified Dr. Woodall, who has been participating in her care and we will continue to follow. Dr. Iglesias, who has been handling the case, will re-evaluate her tomorrow. cc: Reynold Stokes MD
[2018-12-28] MEDS ORDERED: ATIVAN IV PRN (07:13)
--- NOTE | 2018-12-28 07:16 | Diag Imaging Result Doc PS360 ---
CHEST-PORTABLE - 12/27/2018 INDICATION: Hypoxia COMPARISON: 12/26/2018 FINDINGS: There has been significant improvement in the patchy left upper lobe infiltrate. There is some central infiltrates/edema similar to prior. Stable cardiomegaly and pulmonary vascular congestion. No large pleural effusion. Stable right hemidiaphragm elevation. IMPRESSION: Improvement in the left upper lobe infiltrate. Other findings are stable. Electronically signed by Jake Jarrell 12/28/2018 7:14 AM
[2018-12-28] MEDS ORDERED: ATROPINE 1 % OPHTH SOLN SL PRN (09:13)
[2018-12-28 09:31] LABS: BASO# 0.35 X1000 (0.0-0.2); BASO% 0.3 % (0.0-0.8); EOS# 0.02 X1000 (0.0-0.7); HEMATOCRIT 26.6 % (37.0-47.0); IMM GRAN# 1.79 X1000 (0.0-0.04); IMM GRAN% 1.6 % (0.0-0.5); LYMPH# 90.48 X1000 (1.2-3.4); LYMPH% 81.3 % (20.5-51.1); MCH 29.6 PG (27-31); MCHC 30.1 g/dL (33-37); MCV 98.5 FL (81-99); MONO# 3.57 X1000 (0.11-0.59); MONO% 3.2 % (1.7-9.3); MPV 9.9 FL (7.4-10.4); NEUT# 15.04 X1000 (1.4-6.5); NEUT% 13.6 % (42.2-75.2); PLT 124 X1000 (130-400); RDW 15.2 % (11.5-14.5); WBC 111.25 X1000 (4.8-10.8)
[2018-12-28 09:32] LABS: ALB/GLOB RATIO 1.5; CALCIUM 8.7 mg/dL (8.8-10.2); TOTAL BILIRUBIN 0.47 mg/dL (0.20-1.00); TOTAL PROTEIN 6.7 g/dL (6.3-8.3)
[2018-12-28 10:06] LABS: POTASSIUM 6.8 mmol/L (3.5-5.1)
[2018-12-28] MEDS ORDERED: LR 1,000 ML ONE (10:41)
[2018-12-28] MEDS: DILAUDID PCA VIAL IV PRN (10:46)
[2018-12-28 12:36] LABS: URIC ACID 12.9 mg/dL (2.4-5.7)
--- NOTE | 2018-12-28 12:45 | PROGRESS NOTE ---
DATE: 12/28/2018 SUBJECTIVE: This morning, Ms. Bennett is completely unresponsive. Both the daughter and the son were at the bedside. According to the daughter, she got a call from the hospital last evening stating that the patient had declined. I have read from Dr. Stokes's note, he evaluated the patient yesterday and also noted that the patient has declined in her medical status and that she had gone into full-blown blast crisis. PHYSICAL EXAMINATION: Vital signs: This morning, her blood pressure is 126/72, pulse of 71, respiration is 18, temperature is 97.5 degrees. General: Ms. Bennett is an 83-year-old female. She is in bed. She is unresponsive. HEENT: Mucosa was pink and moist. Anicteric. Acyanotic. Neck: Supple. Chest: There are diffuse crackles in both lungs. Cardiovascular: Regular rate and rhythm. Abdomen: Soft. There is some palpable mass on the right flank. Central nervous system: The patient is unresponsive. She would barely move extremities to painful stimulation. Pupils are slightly pinpoint, but they are reactive. LABORATORY DATA: White cell count is still 111,000, hemoglobin is 8.0, platelet count of 124,000. It is still remarkably predominantly lymphocytes. Chemistries: We are still pending the final reports, but sodium is 134. Potassium is still pending. The patient is still remarkably acidotic with a bicarb of 11. BUN went up to 84. Creatinine is 4.0. IMAGING STUDIES: Chest x-ray shows improvement of the left upper lobe pneumonia. ASSESSMENT: 1. Left upper lobe pneumonia with atelectasis. This is improved on the current chest x-ray. 2. History of atrial fibrillation, currently rate controlled. 3. Acute kidney injury. The patient's renal function continues to be getting worse. I had discussed the possibility of tumor lysis syndrome with the oncologist about 3 days ago. He did not think it was. It is however a possibility. We are still pending the potassium. We will get a phosphorus and uric acid level. Her calcium is low. 4. History of chronic lymphocytic leukemia. The patient's WBC is remarkably elevated and is predominantly lymphocytic. It does not state that there are immature cells, however, but I think this is all related to abnormal lymphocytes causing hyperleukostasis, most probably even causing leukostasis. 5. Altered mental status, most likely related to the metabolic encephalopathy, hypoxemia, and ongoing leukostasis. 6. Severe high anion gap metabolic acidosis with a bicarbonate of 11. We think this is this is secondary to lactic acidosis and also the degree of the renal failure. 7. Poor performance status. From her evaluation, Ms. Bennett is actively dying. Family members want to keep her on CMP. We discussed extensively about end-of-life care. At this point, they do not want any prolonging interventions, so they would want us to discontinue the antibiotics, any fluids, no nutrition, and we will put Ms. Bennett on pain management with Dilaudid pump if the intermittent dosing is not meeting her needs. We will also put her on p.r.n. Ativan and atropine for secretions. cc: Mohamud Iglesias MD MTDD
[2018-12-29 07:41] VITALS: BP 98/40
[2018-12-29] MEDS ORDERED: LR 1,000 ML ONE (08:39)
--- NOTE | 2018-12-29 12:39 | PROGRESS NOTE ---
DATE: 12/29/2018 SUBJECTIVE: This morning, Ms. Bennett continues to be remarkably unresponsive. Family members were at the bedside. She is on comfort care measures only. OBJECTIVE: Vital Signs: Blood pressure is 98/40, pulse of 101, respirations are 12, temperature is 98.8 degrees. General Examination: Ms. Bennett is an 83-year-old, elderly, female. She is in bed, unresponsive. HEENT: Mucosa is pink, slightly dry. Anicteric. Acyanotic. Neck: Supple. Chest: There are diffuse crackles in the posterior lung cornejo. Cardiovascular: Slightly tachycardic. Abdomen: Soft. There is some ecchymotic lesion on the right flank and a palpable mass. ASBESTOS SHINGLE INSPECTOR: The patient is unresponsive. Pupils are pinpoint but reactive. She will move to painful stimulation and grimace. Laboratory Data: No lab work for today. ASSESSMENT: 1. Altered mental status, most likely related to metabolic encephalopathy, hypoxemia, and ongoing leukostasis. 2. Severe high anion gap metabolic acidosis. 3. Acute kidney injury. Etiology is unclear. 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 4. History of atrial fibrillation. 5. Left upper lobe pneumonia with atelectasis. 6. Comfort care measures. cc: Mohamud Iglesias MD
[2018-12-29] MEDS: DILAUDID PCA VIAL IV PRN (16:27)
--- NOTE | 2019-01-01 07:03 | DISCHARGE SUMMARY ---
ADMISSION DATE: 12/20/2018 DISCHARGE DATE: 12/29/2018 CONSULTATION DURING THIS ADMISSION: 1. Pulmonary Medicine was consulted. Patient was seen by Dr. Costa. 2. Heme-Onc was consulted. Patient was seen by Dr. Smiley. 3. Infectious Disease was consulted. Patient was seen by Dr. Mathur. 4. Surgery was consulted. Patient was seen by Dr. Larios. INVASIVE PROCEDURES DONE DURING ADMISSION: None. IMAGING STUDIES OF SIGNIFICANCE: 1. A chest x-ray did show mass, pneumonia, and even enlarged aorta in the upper left lung. A chest CT scan showed the mediastinal hilar lymphadenopathy, atypical pneumonia and atelectasis. 2. An echocardiogram did show an ejection fraction of 40 to [address] scan of the abdomen and pelvis showed a right abdominal wall hematoma with apparent active extravasation, possible left atrial thrombosed, possibility of mild colitis cannot be excluded. 4. Subsequent chest x-ray shows some volume loss and pleural thickening in the left upper chest. 5. A repeat chest x-ray on 12/27 showed improvement in the left upper lobe infiltrates. ADMISSION DIAGNOSES: 1. Status post mechanical fall. 2. Left upper lobe pneumonia. 3. Leukocytosis. 4. Hypertension. DIAGNOSES AT TIME OF : 1. Altered mental status secondary to metabolic encephalopathy and hypoxemia. 2. Severe high anion gap metabolic acidosis. 3. 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 4. History of atrial fibrillation. 5. Left upper lobe pneumonia with atelectasis. 6. Right abdominal wall hematoma with extravasation. 7. History of CLL with extremely elevated WBC. PRESENTING COMPLAINT: Status post fall. HISTORY OF PRESENTING COMPLAINT: Ms. Bennett is an 83-year-old female who presented to the emergency department initially at [place] because of fall and getting confused. On presenting to the emergency department, she was found to be hypoxemic and elevated white cell count. A CT scan of the chest did reveal a left upper lobe infiltrate which was typical of pneumonia. The patient was admitted to the hospital at [place] initially for further medical care. HOSPITAL COURSE: Ms. Bennett was transferred from [place] to [facility] for higher level of care. She was started on broad-spectrum IV antibiotics. She was seen by multiple subspecialties including pulmonary medicine, Infectious Disease, and Surgery. Unfortunately, on daily basis, Ms. Bennett's condition continues to decline. She did improve slightly for a couple of days. However, she started to decline in the last 2 to 3 days of her hospitalization. It was found that she was having some abdominal pain. A CT scan did reveal hematoma in the right flank with acute exacerbation. Surgery was consulted. Patient was seen by Dr. Larios who recommended medical management. She was also found to have extremely elevated WBC. Hem-Onc was consulted. Dr. Smiley saw the patient. Since then, Ms. Lims condition continues to decline. There was the thought process that she could have developed tumor lysis syndrome with elevated potassium, phosphorus, uric acid, and low calcium associated with acute kidney injury. The family decided to make Ms. Bennett DNR level 1, and comfort care measures. Unfortunately, on the morning of 12/29/2018, Ms. Bennett . She was pronounced by 2 nurses on the floor. cc: Mohamud Iglesias MD
== END 2018-12-29 18:25 | disposition expired | DRG 193 ==
LOC: SUPCPDRO → P.ED 08:53 → P.MEDSURG 08:54 → SUATTDRO 08:54 → 3N 12-22 15:04
PROVIDERS: ATTEND Internal Medicine
CPT/HCPCS: 70450; 71010; 71045; 71260; 72072; 72110; 72125; 73502; 73562; 74177; 80048; 80053; 81001; 82550; 82553; 82784; 82805; 83605; 83615; 84100; 84145; 84443; 84484; 84550; 85014; 85018; 85025; 85610; 85651; 85730; 86140; 86850; 86900; 86901; 86920; 87040; 87088; 93005; 93010; 93306; 93971; 94640; 94761; 94799; 96374; 97161; 97530; 99285; A9270; J0456; J0692; J0696; J1170; J1561; J1650; J2020; J2060; J2405; J2920; J7030; J7040; J7120; Q9967